=== PATIENT | male | born 1940 | race Caucasian/White ===

== ENCOUNTER 2017-01-22 13:33 | Emergency (ER) | payer MEDICARE ==
[2017-01-22 13:41] VITALS: RESP 18
[2017-01-22] MEDS ORDERED: SODIUM CHLORIDE 0.9% 500 ML IV STA (14:18)
[2017-01-22] MEDS ORDERED: SODIUM CHLORIDE 0.9% 1,000 ML IV STA (14:18)
[2017-01-22] MEDS ORDERED: ONDANSETRON 4 MG/2 ML VIAL IVP STA (14:18)
--- NOTE | 2017-01-22 14:27 | ED ---
General Adult HPI - General Chief complaint: Nausea/Vomiting/Diarrhea Stated complaint: Diarrhea Time Seen by Provider: 01/22/17 14:13 Source: patient, RN notes reviewed, old records reviewed Mode of arrival: wheelchair Limitations: no limitations - History of Present Illness Initial comments: This is a 76-year-old male here for evaluation nausea vomiting diarrhea. Patient has medical history of CVA, patient coming in for evaluation for from car monos day and a half nausea vomiting and diarrhea, weakness decreased appetite not feeling well. No fevers, no significant abdominal pain. No cough congestion or dysuria. No travel history no sick contacts - Related Data Home Medications Medication Instructions Recorded Confirmed Tamsulosin [Flomax] 0.4 mg PO DAILY 09/30/16 01/22/17 metFORMIN HCL [Glucophage] 850 mg PO BID 09/30/16 01/22/17 Multivitamin [Men's Multi-Vitamin] 1 tab PO DAILY 10/13/16 01/22/17 Aspirin EC [Ecotrin Low Dose] 81 mg PO DAILY 01/22/17 01/22/17 Finasteride [Proscar] 5 mg PO HS 01/22/17 01/22/17 Vitamin D(Unknown) 1 tab PO DAILY 01/22/17 01/22/17 Previous Rx's Medication Instructions Recorded Ondansetron [Zofran] 4 mg PO Q8HR PRN #30 tab 01/22/17 Allergies Allergy/AdvReac Type Severity Reaction Status Date / Time adhesive Allergy Unknown IRRITATED Verified 01/22/17 15:11 SKIN propoxyphene napsylate AdvReac Unknown DIZZY, Verified 01/22/17 15:11 [From Darvocet-N 100] FAINT Review of Systems ROS Statement: Those systems with pertinent positive or pertinent negative responses have been documented in the HPI. ROS Other: All systems not noted in ROS Statement are negative. Past Medical History Past Medical History: Diabetes Mellitus, GERD/Reflux, Hyperlipidemia, Hypertension, Prostate Disorder Additional Past Medical History / Comment(s): SEE DR MCQUEEN H&P, SINUS DRAINAGE. BACK PROBLEMS WITH NUMBNESS AND TINGLING IN LEGS. TOENAIL FUNGUS, HX OF SMALL POX INFANT. NEUROENDOCRINE CANCER STAGE 4 LIVER CANCER. TINNITUS History of Any Multi-Drug Resistant Organisms: None Reported Past Surgical History: Back Surgery, Cholecystectomy, Orthopedic Surgery, Tonsillectomy Additional Past Surgical History / Comment(s): BACK SURGERY WITH CAGE L-4 & L-5 , KIMBERLY GREAT TOES, PERFORATED ULCER WITH VAGOTOMY AT 28 YRS OLD WITH MICHAEL . SINUS SURGERY. PORTAL VEIN EMBOLIZATION. KIMBERLY CARPAL TUNNEL, KIMBERLY MIDDLE FINGER TRIGGER FINGER, KIMBERLY CATARACT Past Anesthesia/Blood Transfusion Reactions: No Reported Reaction Past Psychological History: No Psychological Hx Reported Smoking Status: Never smoker Past Alcohol Use History: None Reported Past Drug Use History: None Reported - Past Family History Father Family Medical History: Cancer Additional Family Medical History / Comment(s): PROSTATE Sister(s) Family Medical History: Cancer Additional Family Medical History / Comment(s): LUNG General Exam Limitations: no limitations General appearance: alert, in no apparent distress Head exam: Present: atraumatic, normocephalic, normal inspection Eye exam: Present: normal appearance, PERRL, EOMI. Absent: scleral icterus, conjunctival injection, periorbital swelling ENT exam: Present: normal exam, mucous membranes moist Neck exam: Present: normal inspection. Absent: tenderness, meningismus, lymphadenopathy Respiratory exam: Present: normal lung sounds bilaterally. Absent: respiratory distress, wheezes, rales, rhonchi, stridor Cardiovascular Exam: Present: regular rate, normal rhythm, normal heart sounds. Absent: systolic murmur, diastolic murmur, rubs, gallop, clicks GI/Abdominal exam: Present: soft, normal bowel sounds. Absent: distended, tenderness, guarding, rebound, rigid Extremities exam: Present: normal inspection, full ROM, normal capillary refill. Absent: tenderness, pedal edema, joint swelling, calf tenderness Back exam: Present: normal inspection Neurological exam: Present: alert, oriented X3, CN II-XII intact Psychiatric exam: Present: normal affect, normal mood Skin exam: Present: warm, dry, intact, normal color. Absent: rash Course Vital Signs 01/22/17 01/22/17 01/22/17 13:37 14:54 16:11 Temperature 97.0 F L 97.7 F 98.3 F Pulse Rate 101 H 90 81 Respiratory 18 18 18 Rate Blood Pressure 114/74 147/65 124/74 O2 Sat by Pulse 98 97 97 Oximetry - Reevaluation(s) Reevaluation #1: Patient is without nausea vomiting or episode of diarrhea here in the emergency room EKG Findings - EKG Comments: EKG Findings:: EKG shows normal sinus rhythm 91, OR 160, QRS 90, QTC 447 Medical Decision Making - Medical Decision Making 36 male the ER for evaluation of nausea vomiting diarrhea, possibly medication induced. Patient at this time has no complaints, he did have outpatient stool study flu test urine which is all negative, patient's labwork is no moist finger with IV fluid will be given antiemetic and discharged home - Lab Data Result diagrams: 01/22/17 14:29 01/22/17 14:29 Lab Results 01/22/17 01/22/17 01/22/17 Range/Units 14:29 14:29 14:29 WBC 15.4 H (3.8-10.6) k/uL RBC 4.21 L (4.30-5.90) m/uL Hgb 13.3 (13.0-17.5) gm/dL Hct 40.6 (39.0-53.0) % MCV 96.4 (80.0-100.0) fL MCH 31.5 (25.0-35.0) pg MCHC 32.7 (31.0-37.0) g/dL RDW 12.3 (11.5-15.5) % Plt Count 291 (150-450) k/uL Neutrophils % 94 % Lymphocytes % 2 % Monocytes % 2 % Eosinophils % 1 % Basophils % 0 % Neutrophils # 14.4 H (1.3-7.7) k/uL Lymphocytes # 0.3 L (1.0-4.8) k/uL Monocytes # 0.4 (0-1.0) k/uL Eosinophils # 0.1 (0-0.7) k/uL Basophils # 0.0 (0-0.2) k/uL Sodium 137 (137-145) mmol/L Potassium 4.5 (3.5-5.1) mmol/L Chloride 105 (98-107) mmol/L Carbon Dioxide 19 L (22-30) mmol/L Anion Gap 13 mmol/L BUN 38 H (9-20) mg/dL Creatinine 1.30 H (0.66-1.25) mg/dL Est GFR (MDRD) Af Amer >60 (>60 ml/min/1.73 sqM) Est GFR (MDRD) Non-Af 54 (>60 ml/min/1.73 sqM) Glucose 116 H (74-99) mg/dL Plasma Lactic Acid Sean (0.7-2.0) mmol/L Calcium 8.5 (8.4-10.2) mg/dL Phosphorus 3.3 (2.5-4.5) mg/dL Magnesium 1.7 (1.6-2.3) mg/dL Total Bilirubin 0.7 (0.2-1.3) mg/dL AST 31 (17-59) U/L ALT 33 (21-72) U/L Alkaline Phosphatase 67 (38-126) U/L Total Creatine Kinase 55 (55-170) U/L CK-MB (CK-2) 0.7 (0.0-2.4) ng/mL CK-MB (CK-2) Rel Index 1.3 Troponin I <0.012 (0.000-0.034) ng/mL Total Protein 6.4 (6.3-8.2) g/dL Albumin 3.5 (3.5-5.0) g/dL 01/22/17 Range/Units 14:29 WBC (3.8-10.6) k/uL RBC (4.30-5.90) m/uL Hgb (13.0-17.5) gm/dL Hct (39.0-53.0) % MCV (80.0-100.0) fL MCH (25.0-35.0) pg MCHC (31.0-37.0) g/dL RDW (11.5-15.5) % Plt Count (150-450) k/uL Neutrophils % % Lymphocytes % % Monocytes % % Eosinophils % % Basophils % % Neutrophils # (1.3-7.7) k/uL Lymphocytes # (1.0-4.8) k/uL Monocytes # (0-1.0) k/uL Eosinophils # (0-0.7) k/uL Basophils # (0-0.2) k/uL Sodium (137-145) mmol/L Potassium (3.5-5.1) mmol/L Chloride (98-107) mmol/L Carbon Dioxide (22-30) mmol/L Anion Gap mmol/L BUN (9-20) mg/dL Creatinine (0.66-1.25) mg/dL Est GFR (MDRD) Af Amer (>60 ml/min/1.73 sqM) Est GFR (MDRD) Non-Af (>60 ml/min/1.73 sqM) Glucose (74-99) mg/dL Plasma Lactic Acid Sean 1.6 (0.7-2.0) mmol/L Calcium (8.4-10.2) mg/dL Phosphorus (2.5-4.5) mg/dL Magnesium (1.6-2.3) mg/dL Total Bilirubin (0.2-1.3) mg/dL AST (17-59) U/L ALT (21-72) U/L Alkaline Phosphatase (38-126) U/L Total Creatine Kinase (55-170) U/L CK-MB (CK-2) (0.0-2.4) ng/mL CK-MB (CK-2) Rel Index Troponin I (0.000-0.034) ng/mL Total Protein (6.3-8.2) g/dL Albumin (3.5-5.0) g/dL - Radiology Data Radiology results: report reviewed (Chest x-ray is negative for acute disease), image reviewed Disposition Clinical Impression: Drug-induced nausea and vomiting, Nausea & vomiting Disposition: HOME SELF-CARE Condition: Good Instructions: Acute Diarrhea (ED), Acute Nausea and Vomiting (ED) Prescriptions: Ondansetron [Zofran] 4 mg PO Q8HR PRN #30 tab PRN Reason: Nausea Referrals: None,Stated [Primary Care Provider] - 1-2 days
[2017-01-22 14:54] LABS: Basophils % (A) 0 %; CH 31.9; CHCM 33.2; Eosinophils # (A) 0.1 k/uL (0-0.7); Eosinophils % (A) 1 %; HCT 40.6 % (39.0-53.0); HDW 2.18; HGB 13.3 gm/dL (13.0-17.5); Luc # (Auto) 0.15; Luc % (Auto) 1; Lymphocytes # (A) 0.3 k/uL (1.0-4.8); Lymphocytes % (A) 2 %; MCH 31.5 pg (25.0-35.0); MCHC 32.7 g/dL (31.0-37.0); MCV 96.4 fL (80.0-100.0); Mean Platelet Volume 7.1; Monocytes # (A) 0.4 k/uL (0-1.0); Monocytes % (A) 2 %; Neutrophils # (A) 14.4 k/uL (1.3-7.7); Neutrophils % (A) 94 %; RBC 4.21 m/uL (4.30-5.90); RDW 12.3 % (11.5-15.5); WBC 15.4 k/uL (3.8-10.6)
[2017-01-22 15:05] LABS: ALT 33 U/L (21-72); AST 31 U/L (17-59); Alkaline Phosphatase 67 U/L (38-126); Anion Gap 13 mmol/L; Blood Urea Nitrogen 38 mg/dL (9-20); Calcium 8.5 mg/dL (8.4-10.2); Carbon Dioxide 19 mmol/L (22-30); Chloride 105 mmol/L (98-107); Glucose 116 mg/dL (74-99); Magnesium 1.7 mg/dL (1.6-2.3); Non-African American GFR(MDRD) 54 (>60 ml/min/1.73 sqM); Phosphorous 3.3 mg/dL (2.5-4.5); Potassium 4.5 mmol/L (3.5-5.1); Sodium 137 mmol/L (137-145); Total Bilirubin 0.7 mg/dL (0.2-1.3); Total Protein 6.4 g/dL (6.3-8.2)
[2017-01-22 15:18] LABS: Creatine Kinase 55 U/L (55-170)
[2017-01-22 15:29] LABS: Creatine Kinase MB 0.7 ng/mL (0.0-2.4); Troponin I <0.012 ng/mL (0.000-0.034)
[2017-01-22 16:11] VITALS: BP 124/74; PULSE 81; TEMP 98.3
--- NOTE | 2017-01-22 16:27 | XR ---
EXAMINATION TYPE: XR chest 2V DATE OF EXAM: 01/22/2017 4:01 PM COMPARISON: 09/20/2013 HISTORY: 76-year-old male with pain, cough, fever, chills TECHNIQUE: Frontal and lateral views FINDINGS: Heart is normal size. Mild elongation of the thoracic aorta. Some strandy atelectasis in the lower rebekah ngs. No consolidation or pleural effusion. IMPRESSION: Chronic changes without acute cardiopulmonary process.
== END 2017-01-22 16:24 | disposition home or self-care (01) ==
LOC: EC 13:33
DX: R11.2 Nausea with vomiting, unspecified (principal); K21.9 Gastro-esophageal reflux disease without esophagitis; I10 Essential (primary) hypertension; E78.5 Hyperlipidemia, unspecified; E11.9 Type 2 diabetes mellitus without complications; Z86.73 Personal history of transient ischemic attack (TIA), and cerebral infarction without residual deficits; Z79.84 Long term (current) use of oral hypoglycemic drugs; Z79.82 Long term (current) use of aspirin; Z79.899 Other long term (current) drug therapy; Z88.5 Allergy status to narcotic agent; Z88.8 Allergy status to other drugs, medicaments and biological substances
CPT/HCPCS: 36415; 71020; 80053; 82550; 82553; 83605; 83735; 84100; 84484; 85025; 87040; 93005; 96360; 99284

== ENCOUNTER 2017-01-24 07:11 | Inpatient (IN) | payer MEDICARE ==
[2017-01-24] MEDS ORDERED: DICYCLOMINE 10 MG/ML 2 ML AMP IM STA (07:32)
[2017-01-24] MEDS ORDERED: ONDANSETRON 4 MG/2 ML VIAL IVP STA (07:32)
[2017-01-24] MEDS ORDERED: SODIUM CHLORIDE 0.9% 1,000 ML IV STA (07:32)
[2017-01-24] MEDS ORDERED: FAMOTIDINE 20 MG/2 ML VIAL IV STA (07:33)
--- NOTE | 2017-01-24 07:35 | ED ---
General Adult HPI - General Chief complaint: Abdominal Pain Stated complaint: DIARRHEA, VOMITING Time Seen by Provider: 01/24/17 07:28 Source: patient, family, RN notes reviewed Mode of arrival: wheelchair Limitations: no limitations - History of Present Illness Initial comments: Patient is a pleasant 76-year-old male presenting to the emergency department complaining of nausea vomiting diarrhea. Onset of symptoms was 3 or 4 days ago. Patient was here 2 days ago and received IV fluids. Patient has not ate or drank anything in the past 2 days. Patient does have occasional diarrhea. Patient has some abdominal discomfort that is mild. No fevers. Patient does have a history of liver cancer however is not currently on chemotherapy. - Related Data Home Medications Medication Instructions Recorded Confirmed Tamsulosin [Flomax] 0.4 mg PO DAILY 09/30/16 01/24/17 metFORMIN HCL [Glucophage] 850 mg PO BID 09/30/16 01/24/17 Multivitamin [Men's Multi-Vitamin] 1 tab PO DAILY 10/13/16 01/24/17 Aspirin EC [Ecotrin Low Dose] 81 mg PO DAILY 01/22/17 01/24/17 Finasteride [Proscar] 5 mg PO HS 01/22/17 01/24/17 Vitamin D(Unknown) 1 tab PO DAILY 01/22/17 01/24/17 Previous Rx's Medication Instructions Recorded Ondansetron [Zofran] 4 mg PO Q8HR PRN #30 tab 01/22/17 Allergies Allergy/AdvReac Type Severity Reaction Status Date / Time adhesive Allergy Unknown IRRITATED Verified 01/24/17 07:18 SKIN propoxyphene napsylate AdvReac Unknown DIZZY, Verified 01/24/17 07:18 [From Rupesht-N 100] FAINT Review of Systems ROS Statement: Those systems with pertinent positive or pertinent negative responses have been documented in the HPI. ROS Other: All systems not noted in ROS Statement are negative. Constitutional: Denies: fever Eyes: Denies: eye pain ENT: Denies: ear pain Respiratory: Denies: dyspnea Cardiovascular: Denies: chest pain Endocrine: Reports: fatigue Gastrointestinal: Reports: abdominal pain, nausea, vomiting, diarrhea Genitourinary: Denies: dysuria Musculoskeletal: Denies: back pain Skin: Denies: rash Neurological: Denies: headache Past Medical History Past Medical History: Cancer, Diabetes Mellitus, GERD/Reflux, Hyperlipidemia, Hypertension, Prostate Disorder Additional Past Medical History / Comment(s): SEE DR MCQUEEN H&P, SINUS DRAINAGE. BACK PROBLEMS WITH NUMBNESS AND TINGLING IN LEGS. TOENAIL FUNGUS, HX OF SMALL POX . NEUROENDOCRINE CANCER STAGE 4 LIVER CANCER. TINNITUS History of Any Multi-Drug Resistant Organisms: None Reported Past Surgical History: Back Surgery, Cholecystectomy, Orthopedic Surgery, Tonsillectomy Additional Past Surgical History / Comment(s): BACK SURGERY WITH CAGE L-4 & L-5 , KIMBERLY GREAT TOES, PERFORATED ULCER WITH VAGOTOMY AT 28 YRS OLD WITH MICHAEL . SINUS SURGERY. PORTAL VEIN EMBOLIZATION. KIMBERLY CARPAL TUNNEL, KIMBERLY MIDDLE FINGER TRIGGER FINGER, KIMBERLY CATARACT Past Anesthesia/Blood Transfusion Reactions: No Reported Reaction Past Psychological History: No Psychological Hx Reported Smoking Status: Never smoker Past Alcohol Use History: None Reported Past Drug Use History: None Reported - Past Family History Father Family Medical History: Cancer Additional Family Medical History / Comment(s): PROSTATE Sister(s) Family Medical History: Cancer Additional Family Medical History / Comment(s): LUNG General Exam Limitations: no limitations General appearance: alert, in no apparent distress Head exam: Present: atraumatic Eye exam: Present: normal appearance, PERRL ENT exam: Present: normal oropharynx Neck exam: Present: normal inspection Respiratory exam: Present: normal lung sounds bilaterally Cardiovascular Exam: Present: regular rate, normal rhythm GI/Abdominal exam: Present: soft, tenderness (Mild diffuse tenderness), normal bowel sounds. Absent: distended, guarding, rebound, rigid, pulsatile mass Extremities exam: Present: normal inspection. Absent: pedal edema, calf tenderness Neurological exam: Present: alert Psychiatric exam: Present: normal affect, normal mood Skin exam: Absent: rash Course Vital Signs 01/24/17 01/24/17 01/24/17 07:12 09:09 11:00 Temperature 97.7 F Pulse Rate 87 84 81 Respiratory 22 20 16 Rate Blood Pressure 185/92 170/92 169/81 O2 Sat by Pulse 99 100 98 Oximetry Medical Decision Making - Medical Decision Making Patient reexamined and somewhat improved. Patient and family updated on results and plan. Case was discussed in detail with Dr. Dorado who does agree with admission. Case also discussed in detail with Dr. wilson, who will admit for medical call. - Lab Data Result diagrams: 01/24/17 07:29 01/24/17 07:29 Lab Results 01/24/17 01/24/17 01/24/17 Range/Units 07:29 07:29 07:29 WBC 14.1 H (3.8-10.6) k/uL RBC 4.69 (4.30-5.90) m/uL Hgb 14.7 (13.0-17.5) gm/dL Hct 44.7 (39.0-53.0) % MCV 95.3 (80.0-100.0) fL MCH 31.3 (25.0-35.0) pg MCHC 32.9 (31.0-37.0) g/dL RDW 12.1 (11.5-15.5) % Plt Count 355 (150-450) k/uL Neutrophils % 84 % Lymphocytes % 8 % Monocytes % 5 % Eosinophils % 0 % Basophils % 0 % Neutrophils # 11.9 H (1.3-7.7) k/uL Lymphocytes # 1.1 (1.0-4.8) k/uL Monocytes # 0.7 (0-1.0) k/uL Eosinophils # 0.0 (0-0.7) k/uL Basophils # 0.0 (0-0.2) k/uL PT 11.3 (9.0-12.0) sec INR 1.1 (<1.1) APTT 25.4 (22.0-30.0) sec Sodium 141 (137-145) mmol/L Potassium 3.8 (3.5-5.1) mmol/L Chloride 106 (98-107) mmol/L Carbon Dioxide 18 L (22-30) mmol/L Anion Gap 17 mmol/L BUN 27 H (9-20) mg/dL Creatinine 1.24 (0.66-1.25) mg/dL Est GFR (MDRD) Af Amer >60 (>60 ml/min/1.73 sqM) Est GFR (MDRD) Non-Af 57 (>60 ml/min/1.73 sqM) Glucose 158 H (74-99) mg/dL Calcium 10.1 (8.4-10.2) mg/dL Total Bilirubin 0.5 (0.2-1.3) mg/dL AST 29 (17-59) U/L ALT 33 (21-72) U/L Alkaline Phosphatase 77 (38-126) U/L Total Protein 6.7 (6.3-8.2) g/dL Albumin 3.8 (3.5-5.0) g/dL Amylase 64 (30-110) U/L Lipase 154 (23-300) U/L Urine Color Urine Appearance (Clear) Urine pH (5.0-8.0) Ur Specific Haworth (1.001-1.035) Urine Protein (Negative) Urine Glucose (UA) (Negative) Urine Ketones (Negative) Urine Blood (Negative) Urine Nitrite (Negative) Urine Bilirubin (Negative) Urine Urobilinogen (<2.0) mg/dL Ur Leukocyte Esterase (Negative) 01/24/17 Range/Units 11:25 WBC (3.8-10.6) k/uL RBC (4.30-5.90) m/uL Hgb (13.0-17.5) gm/dL Hct (39.0-53.0) % MCV (80.0-100.0) fL MCH (25.0-35.0) pg MCHC (31.0-37.0) g/dL RDW (11.5-15.5) % Plt Count (150-450) k/uL Neutrophils % % Lymphocytes % % Monocytes % % Eosinophils % % Basophils % % Neutrophils # (1.3-7.7) k/uL Lymphocytes # (1.0-4.8) k/uL Monocytes # (0-1.0) k/uL Eosinophils # (0-0.7) k/uL Basophils # (0-0.2) k/uL PT (9.0-12.0) sec INR (<1.1) APTT (22.0-30.0) sec Sodium (137-145) mmol/L Potassium (3.5-5.1) mmol/L Chloride (98-107) mmol/L Carbon Dioxide (22-30) mmol/L Anion Gap mmol/L BUN (9-20) mg/dL Creatinine (0.66-1.25) mg/dL Est GFR (MDRD) Af Amer (>60 ml/min/1.73 sqM) Est GFR (MDRD) Non-Af (>60 ml/min/1.73 sqM) Glucose (74-99) mg/dL Calcium (8.4-10.2) mg/dL Total Bilirubin (0.2-1.3) mg/dL AST (17-59) U/L ALT (21-72) U/L Alkaline Phosphatase (38-126) U/L Total Protein (6.3-8.2) g/dL Albumin (3.5-5.0) g/dL Amylase (30-110) U/L Lipase (23-300) U/L Urine Color Yellow Urine Appearance Clear (Clear) Urine pH 5.5 (5.0-8.0) Ur Specific Haworth 1.045 H (1.001-1.035) Urine Protein Trace H (Negative) Urine Glucose (UA) Negative (Negative) Urine Ketones 1+ H (Negative) Urine Blood Negative (Negative) Urine Nitrite Negative (Negative) Urine Bilirubin Negative (Negative) Urine Urobilinogen <2.0 (<2.0) mg/dL Ur Leukocyte Esterase Negative (Negative) - Radiology Data Radiology results: report reviewed (Computed tomography scan of the abdomen pelvis shows enteritis. Possible mild diverticulitis. Pneumobilia and liver lesion.) Disposition Clinical Impression: Diverticulitis Disposition: ADMITTED IP TO THIS HOSP
[2017-01-24 07:50] LABS: Basophils % (A) 0 %; CH 31.9; CHCM 33.7; Eosinophils % (A) 0 %; HCT 44.7 % (39.0-53.0); HDW 2.41; HGB 14.7 gm/dL (13.0-17.5); Luc # (Auto) 0.26; Luc % (Auto) 2; Lymphocytes # (A) 1.1 k/uL (1.0-4.8); Lymphocytes % (A) 8 %; MCH 31.3 pg (25.0-35.0); MCHC 32.9 g/dL (31.0-37.0); MCV 95.3 fL (80.0-100.0); Mean Platelet Volume 7.4; Monocytes # (A) 0.7 k/uL (0-1.0); Monocytes % (A) 5 %; Neutrophils # (A) 11.9 k/uL (1.3-7.7); Neutrophils % (A) 84 %; RBC 4.69 m/uL (4.30-5.90); RDW 12.1 % (11.5-15.5); WBC 14.1 k/uL (3.8-10.6); WBC (Perox) 14.43
[2017-01-24 07:59] LABS: INR 1.1 (<1.1); Partial Thromboplastin Time 25.4 sec (22.0-30.0); Prothrombin Time 11.3 sec (9.0-12.0)
[2017-01-24 08:00] LABS: ALT 33 U/L (21-72); AST 29 U/L (17-59); Alkaline Phosphatase 77 U/L (38-126); Amylase 64 U/L (30-110); Anion Gap 17 mmol/L; Blood Urea Nitrogen 27 mg/dL (9-20); Calcium 10.1 mg/dL (8.4-10.2); Carbon Dioxide 18 mmol/L (22-30); Chloride 106 mmol/L (98-107); Glucose 158 mg/dL (74-99); Non-African American GFR(MDRD) 57 (>60 ml/min/1.73 sqM); Sodium 141 mmol/L (137-145); Total Bilirubin 0.5 mg/dL (0.2-1.3); Total Protein 6.7 g/dL (6.3-8.2)
[2017-01-24 08:01] LABS: Potassium 3.8 mmol/L (3.5-5.1)
[2017-01-24] MEDS ORDERED: MORPHINE SULFATE 4 MG/ML SYRINGE IVP STA (08:22)
--- NOTE | 2017-01-24 08:27 | XR ---
EXAMINATION TYPE: XR KUB DATE OF EXAM: 01/24/2017 8:06 AM CLINICAL HISTORY: Known history of liver cancer presents with abdominal pain since TECHNIQUE: 2 upright KUB images of the abdomen are obtained. COMPARISON: Abdominal x-ray and CT abdomen and pelvis October 13, 2016 FINDINGS: Scattered gas is seen in non-distended small and large bowel loops. Surgical clips epigas tric region are redemonstrated. Cholecystectomy clips are again seen. Some pelvic phleboliths are red emonstrated. Surgical change at lumbosacral junction disc space is redemonstrated. No pneumoperitoneu m is identified. Lung bases are clear. There is disc space narrowing with sclerosis at L2-L3 and L3-L 4 levels redemonstrated. IMPRESSION: Overall nonobstructive bowel gas pattern.
[2017-01-24] MEDS ORDERED: RX INFO: IV CONTRAST WAS GIVEN 1 EACH MISC MISCELLANE PRN (08:47)
[2017-01-24] MEDS: MORPHINE SULFATE 4 MG/ML SYRINGE IVP STA ×2 (09:06→10:59)
--- NOTE | 2017-01-24 11:09 | CT ---
EXAMINATION TYPE: CT abdomen pelvis w con DATE OF EXAM: 01/24/2017 10:42 AM COMPARISON: CT abdomen and pelvis October 13, 2016 HISTORY: History of liver and prostate cancer presents with pain not further specified. Additional sy mptoms of diarrhea and vomiting. CT DLP: 824.7 mGycm, Automated Exposure Control for Dose Reduction was Utilized. CONTRAST: CT scan of the abdomen and pelvis is performed without oral and with IV Contrast, patient injected wi th 100 mL of Omnipaque 300. FINDINGS: LUNG BASES: No significant abnormality is appreciated. LIVER/GB: Cholecystectomy clips are redemonstrated. There is new pneumobilia noted. A Central hypoden se lesion with calcification measuring 2.7 x 1.9 cm on axial image 20 is felt stable from prior. PANCREAS: No significant abnormality is seen. SPLEEN: No significant abnormality is seen. ADRENALS: No significant abnormality is seen. KIDNEYS: No significant abnormality is seen. BOWEL: Evaluation bowel is suboptimal due to lack of enteric contrast. There are surgical changes at diaphragmatic hiatus presumed from Lobo fundoplication surgery. There is dilated duodenal sweep wit h moderate to severe wall thickening beginning in the third portion extending through ligament of Venu jarret into the proximal jejunum. Long segment enteritis is suspected. Remainder of small bowel shows no suspicious dilatation. No suspicious colonic dilatation is seen. There is prominent sigmoid colonic diverticulosis. There are additional diverticula in the left colon. Mild inflammatory change or acute diverticulitis at level of sigmoid colon is difficult to exclude as there is moderate wall thickenin g with mild vasa recta prominency and adjacent ill-defined fluid. PROSTATE/SEMINAL VESICLES: Prostate gland is heterogeneous appearance and enlarged in size consistent with BPH, clinical correlation advised. LYMPH NODES: No greater than 1cm abdominal or pelvic lymph nodes are appreciated. OSSEOUS STRUCTURES: There is prominent endplate sclerosis with disc space narrowing as well as subcho ndral cystic change and spurring at L2-L3 and L3-L4 levels. Metallic disc material L5-S1 level is red emonstrated. There is facet arthropathy lower lumbar levels. There is multilevel spurring in the visu alized thoracic spine. OTHER: No significant additional abnormality is seen. IMPRESSION: 1. Prominent sigmoid colonic diverticulosis with suspicion for a mild acute diverticulitis. 2. Acute enteritis suspected in the mid abdomen involving duodenum and proximal jejunum, consider inf ectious or inflammatory etiologies. 3. New pneumobilia with stable suspicious partially calcified solid central liver mass may warrant fu rther clinical workup.
[2017-01-24 11:41] LABS: Appearance,Urine Clear (Clear); Bilirubin,Urine Negative (Negative); Glucose,Urine (UA) Negative (Negative); Ketones,Urine 1+ (Negative); Leukocyte Esterase,Urine Negative (Negative); Nitrite,Urine Negative (Negative); PH, Urine 5.5 (5.0-8.0); Protein,Urine Trace (Negative); Specific Gravity,Urine 1.045 (1.001-1.035); UA Billing (MACRO vs. MICRO) CHEM; Urobilinogen,Urine <2.0 mg/dL (<2.0)
[2017-01-24] MEDS ORDERED: NALOXONE 0.4 MG/ML 1 ML VIAL IV PRN (11:59)
[2017-01-24] MEDS: SODIUM CHLORIDE 0.9% 1,000 ML IV SCH (12:19)
[2017-01-24 13:44] VITALS: BMI 24.0
[2017-01-24] MEDS: LEVOFLOXACIN 500MG-D5W PMX 500 MG in DEXTROSE/WATER 1 100ML.BAG IVPB SCH (15:48)
[2017-01-24] MEDS: metroNIDAZOLE-NS PMX 500 MG in SALINE 1 100ML.BAG IVPB SCH (17:32)
[2017-01-24 17:34] LABS: Glucose,Whole Blood 109 mg/dL (75-99)
[2017-01-24] MEDS: HYDROmorphone 1 MG/ML 1 ML SYRINGE IV PRN ×2 (17:35→22:08)
--- NOTE | 2017-01-24 19:22 | P.GSCN ---
History of Present Illness Consult date: 01/24/17 Reason for Consult: Abdominal pain History of present illness: 76 years old male presents with diffuse abdominal pain, diarrhea and vomiting that started 3 days ago. Patient was treated with IV hydration as outpatient. However his symptoms did not improve and hence he came to the ER. 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 He has Type 2 DM. He was receiving Sandostatin injection utill October 2016. He currently follows up with Dr. Villarreal and has 6 monthly follow up visits at [facility] At the time of my examination, patient reports pain is well controlled. He has loose bowel movement within half an hour of food intake. He also has postprandial abdominal pain. Diarrhea discussed described as watery without any clots or anderson bleeding. His nausea and vomiting have resolved. Review of Systems Constitutional: Denies fever, weight loss or loss of appetite HEENT: Has difficulty in hearing. Denies dysphagia. Cardiovascular:Denies chest pain, palpitations, dizziness, shortness of breath. Respiratory: No cough or SOB Gastrointestinal: stated in [facility] Integumentary: No ulcers or breakdown Genitourinary: Has BPH Neurologic: No seizures, denies weakness in upper or lower extremities Past Medical History Past Medical History: Cancer, Diabetes Mellitus, GERD/Reflux, Hyperlipidemia, Hypertension, Prostate Disorder Additional Past Medical History / Comment(s): SEE DR MCQUEEN H&P, SINUS DRAINAGE. BACK PROBLEMS WITH NUMBNESS AND TINGLING IN LEGS. TOENAIL FUNGUS, HX OF SMALL POX INFANT. NEUROENDOCRINE CANCER STAGE 4 LIVER CANCER. TINNITUS History of Any Multi-Drug Resistant Organisms: None Reported Past Surgical History: Back Surgery, Cholecystectomy, Orthopedic Surgery, Tonsillectomy Additional Past Surgical History / Comment(s): BACK SURGERY WITH CAGE L-4 & L-5 , KIMBERLY GREAT TOES, PERFORATED ULCER WITH VAGOTOMY AT 28 YRS OLD WITH MICHAEL . SINUS SURGERY. PORTAL VEIN EMBOLIZATION. KIMBERLY CARPAL TUNNEL, KIMBERLY MIDDLE FINGER TRIGGER FINGER, KIMBERLY CATARACT Past Anesthesia/Blood Transfusion Reactions: No Reported Reaction Past Psychological History: No Psychological Hx Reported Smoking Status: Never smoker Past Alcohol Use History: None Reported Past Drug Use History: None Reported - Past Family History Father Family Medical History: Cancer Additional Family Medical History / Comment(s): PROSTATE Sister(s) Family Medical History: Cancer Additional Family Medical History / Comment(s): LUNG Medications and Allergies Home Medications Medication Instructions Recorded Confirmed Type Tamsulosin [Flomax] 0.4 mg PO DAILY 09/30/16 01/24/17 History metFORMIN HCL [Glucophage] 850 mg PO BID 09/30/16 01/24/17 History Multivitamin [Men's Multi-Vitamin] 1 tab PO DAILY 10/13/16 01/24/17 History Aspirin EC [Ecotrin Low Dose] 81 mg PO DAILY 01/22/17 01/24/17 History Finasteride [Proscar] 5 mg PO HS 01/22/17 01/24/17 History Cholestyramine (with Sugar) 4 gm PO BID 01/24/17 01/24/17 History [Questran] Allergies Allergy/AdvReac Type Severity Reaction Status Date / Time adhesive Allergy Unknown Rash/Hives Verified 01/24/17 12:29 propoxyphene napsylate AdvReac Unknown Vertigo Verified 01/24/17 12:29 [From [facility]-N 100] Surgical - Exam Vital Signs Temp Pulse Resp BP Pulse Ox 97.7 F 87 22 185/92 99 01/24/17 07:12 01/24/17 07:12 01/24/17 07:12 01/24/17 07:12 01/24/17 07:12 General: Patient is alert and oriented to time, place and person and cooperative with exam. He is not in acute distress. HEENT: No pallor, no icterus Chest: Bilateral equal breath sounds present. No wheezes, no crackles. Cardiovascular: Regular rate and rhythm. Abdomen: Soft, nontender, nondistended. Bowel sounds present. No peritonitis. Well-healed surgical scars Integumentary: No active ulcers or discharge. Neurologic: Cranial nerves II-XII intact. Strength upper and lower extremities 5/5. No focal neurologic deficits. Psychiatric: No anxiety or psychosis. Results - Labs 01/24/17 07:29 01/24/17 07:29 Abnormal Lab Results - Last 24 Hours (Table) 01/24/17 Range/Units 17:30 POC Glucose (mg/dL) 109 H (75-99) mg/dL - Imaging CT scan - abdomen: other (CT scan of the abdomen and pelvis reviewed. Extensive sigmoid diverticulosis with possible mild diverticulitis. No evidence of free air. Postsurgical changes in stomach and gallbladder fossa. Known liver lesion with calcifications. Pneumobilia present) Assessment and Plan (1) Abdominal pain Status: Acute (2) Nausea & vomiting Status: Acute (3) Pneumobilia Status: Acute (4) Type 2 diabetes mellitus Status: Acute (5) Neuroendocrine cancer Status: Acute Plan: 1. Patient examined and history reviewed. 2. Abdomen is soft. No evidence of acute peritonitis. No indication for immediate surgical intervention at this time 3. CT findings noted . Extensive diverticulosis. No evidence of perforation. Pneumobilia noted. Continue IV antibiotics Levaquin and Flagyl. Recheck CBC and CMP in a.m. 4. Type 2 diabetes mellitus, check hemoglobin A1c 5. DVT and GI prophylaxis 6. Reevaluate in a.m. 7. Abdominal x-ray series in a.m. 8. IV hydration 9. Start clear liquid diet
[2017-01-24 20:54] LABS: Glucose,Whole Blood 114 mg/dL (75-99)
--- NOTE | 2017-01-24 21:26 | HP ---
DATE OF ADMISSION: 01/24/2017 The patient is a very pleasant 76-year-old gentleman with history of liver cancer in remission, came in with complaints of ( ). ( ) decreased, sharp in nature. Nausea, vomiting and diarrhea has been going on for since Thursday. The patient had 3 episodes of vomiting today, along with multiple episodes of diarrhea today. Not sure if the patient has been on antibiotics or not. The patient is ( ) with renal failure. The patient had a CT of the abdomen which showed some minimal diverticulitis along with changes consistent with enteritis. Patient is admitted for IV fluids. The patient is ( ) levofloxacin. ( ) testing. The patient is not receiving chemotherapy currently. REVIEW OF SYSTEMS: CONSTITUTIONAL: No fever, no malaise, no fatigue. HEENT: No recent visual problems or hearing problems. Denied any sore throat. CARDIOVASCULAR: No chest pain, orthopnea, PND, no palpitations, no syncope. PULMONARY: No shortness of breath, no cough, no hemoptysis. GASTROINTESTINAL: Denies hematemesis, hematochezia, or blood in stool except for when he wipes he complains of some skin breakdown and blood secondary to that. Beyond that the patient does not have any history of GI bleed. NEUROLOGICAL: No headaches, no weakness, no numbness. HEMATOLOGICAL: Denies any bleeding or petechiae. GENITOURINARY: Denies any burning micturition, frequency, or urgency. MUSCULOSKELETAL/RHEUMATOLOGICAL: Denies any joint pain, swelling, or any muscle pain. ENDOCRINE: Denies any polyuria or polydipsia. The rest of the 14 point review of systems is negative. MEDICATIONS: 1. Tamsulosin. 2. Multivitamin. 3. ( ) Vitamin D. PAST MEDICAL HISTORY: Significant for liver transplant, the patient had an embolization in the past. ( ), hypertension although the patient does not take any medications for the hypertension. ( ). POST SURGICAL HISTORY: Back surgery, cholecystectomy in the past, orthopedic surgeries, ( ). The patient had a vagotomy in the past. SOCIAL HISTORY: Denies smoking or alcohol abuse. No drug abuse. FAMILY HISTORY: Father had prostate cancer. Sister had ( ). PHYSICAL EXAMINATION: VITAL SIGNS: Temp 97.7, pulse 81, blood pressure 116/81, saturation 98% on room air. GENERAL: The patient is alert and oriented x3, not in any acute distress. Well developed, well nourished. HEENT: Pupils are round and equally reacting to light. EOMI. No scleral icterus. No conjunctival pallor. Normocephalic, atraumatic. No pharyngeal erythema. No thyromegaly. CARDIOVASCULAR: S1 and S2 present. No murmurs, rubs, or gallops. PULMONARY: Chest is clear to auscultation, no wheezing or crackles. ABDOMEN: Scars consistent with laparotomy in the past. Abdomen is nontender, nondistended. No rebound or rigidity. MUSCULOSKELETAL: No joint swelling or deformity. EXTREMITIES: No cyanosis, clubbing, or pedal edema. NEUROLOGICAL: Gross neurological examination did not reveal any focal deficits. SKIN: No rashes. LABORATORY DATA: CBC and CMP are abnormal for elevated WBC count of 14,100. I do not have his baseline creatinine, ( ) elevated to around 1.2 for BUN of 27. ASSESSMENT AND PLAN: 1. Abdominal pain, nausea, vomiting, diarrhea, probably related to mild diverticulitis along with ( ). IV fluids have been started ( ). 2. Nausea, vomiting, diarrhea. The patient will be started on IV fluids. 3. Gastroesophageal reflux disease. 4. Diabetes mellitus. Hold off on bicarb. The patient will be started on sliding scale insulin. Continue to monitor clinically. Monitor kidney function. 5. Benign prostatic hypertrophy. Continue to ( ).
[2017-01-25] MEDS: metroNIDAZOLE-NS PMX 500 MG in SALINE 1 100ML.BAG IVPB SCH ×3 (02:30→15:26)
[2017-01-25] MEDS: SODIUM CHLORIDE 0.9% 1,000 ML IV SCH ×3 (02:41→13:46)
[2017-01-25] MEDS: HYDROmorphone 1 MG/ML 1 ML SYRINGE IV PRN ×2 (04:09→09:27)
[2017-01-25] MEDS: ONDANSETRON 4 MG/2 ML VIAL IVP PRN ×3 (05:52→22:16)
[2017-01-25 08:07] LABS: Glucose,Whole Blood 108 mg/dL (75-99)
[2017-01-25 08:14] LABS: Basophils # (A) 0.1 k/uL (0-0.2); Basophils % (A) 0 %; CH 31.7; CHCM 33.2; Eosinophils % (A) 0 %; HGB 12.6 gm/dL (13.0-17.5); Luc # (Auto) 0.29; Luc % (Auto) 2; Lymphocytes # (A) 1.3 k/uL (1.0-4.8); Lymphocytes % (A) 9 %; MCH 30.3 pg (25.0-35.0); MCHC 31.6 g/dL (31.0-37.0); MCV 95.9 fL (80.0-100.0); Mean Platelet Volume 7.2; Monocytes # (A) 0.9 k/uL (0-1.0); Monocytes % (A) 6 %; Neutrophils # (A) 11.6 k/uL (1.3-7.7); Neutrophils % (A) 82 %; RBC 4.17 m/uL (4.30-5.90); RDW 12.3 % (11.5-15.5); WBC 14.1 k/uL (3.8-10.6); WBC (Perox) 14.24
[2017-01-25 08:26] LABS: ALT 27 U/L (21-72); AST 22 U/L (17-59); Alkaline Phosphatase 54 U/L (38-126); Anion Gap 9 mmol/L; Blood Urea Nitrogen 20 mg/dL (9-20); Calcium 8.4 mg/dL (8.4-10.2); Carbon Dioxide 23 mmol/L (22-30); Chloride 108 mmol/L (98-107); Glucose 102 mg/dL (74-99); Non-African American GFR(MDRD) >60 (>60 ml/min/1.73 sqM); Potassium 3.7 mmol/L (3.5-5.1); Sodium 140 mmol/L (137-145); Total Bilirubin 0.3 mg/dL (0.2-1.3); Total Protein 5.2 g/dL (6.3-8.2)
[2017-01-25] MEDS: PANTOPRAZOLE 40 MG/10 ML VIAL IV SCH (09:36)
[2017-01-25 11:54] LABS: Glucose,Whole Blood 113 mg/dL (75-99)
--- NOTE | 2017-01-25 12:24 | P.PN ---
Subjective 76 years old male presents with diffuse abdominal pain, diarrhea and vomiting that started 3 days ago. Patient was treated with IV hydration as outpatient. However his symptoms did not improve and hence he came to the ER. 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 He has Type 2 DM. He was receiving Sandostatin injection utill October 2016. He currently follows up with Dr. Villarreal and has 6 monthly follow up visits at [facility] He has loose bowel movement within half an hour of food intake. He also has postprandial abdominal pain. No further BM. He has some nausea , no vomiting. No flatus. Abdominal pain - . Review of Systems Constitutional: Denies fever, weight loss or loss of appetite HEENT: Has difficulty in hearing. Denies dysphagia. Cardiovascular:Denies chest pain, palpitations, dizziness, shortness of breath. Respiratory: No cough or SOB Gastrointestinal: stated in [place] Integumentary: No ulcers or breakdown Genitourinary: Has BPH Neurologic: No seizures, denies weakness in upper or lower extremities Past Medical History Past Medical History: Cancer, Diabetes Mellitus, GERD/Reflux, Hyperlipidemia, Hypertension, Prostate Disorder Additional Past Medical History / Comment(s): SEE DR MCQUEEN H&P, SINUS DRAINAGE. BACK PROBLEMS WITH NUMBNESS AND TINGLING IN LEGS. TOENAIL FUNGUS, HX OF SMALL POX INFANT. NEUROENDOCRINE CANCER STAGE 4 LIVER CANCER. TINNITUS History of Any Multi-Drug Resistant Organisms: None Reported Past Surgical History: Back Surgery, Cholecystectomy, Orthopedic Surgery, Tonsillectomy Additional Past Surgical History / Comment(s): BACK SURGERY WITH CAGE L-4 & L-5 , KIMBERLY GREAT TOES, PERFORATED ULCER WITH VAGOTOMY AT 28 YRS OLD WITH MICHAEL . SINUS SURGERY. PORTAL VEIN EMBOLIZATION. KIMBERLY CARPAL TUNNEL, KIMBERLY MIDDLE FINGER TRIGGER FINGER, KIMBERLY CATARACT Past Anesthesia/Blood Transfusion Reactions: No Reported Reaction Past Psychological History: No Psychological Hx Reported Smoking Status: Never smoker Past Alcohol Use History: None Reported Past Drug Use History: None Reported - Past Family History Father Family Medical History: Cancer Additional Family Medical History / Comment(s): PROSTATE Sister(s) Family Medical History: Cancer Additional Family Medical History / Comment(s): LUNG Medications and Allergies Home Medications Medication Instructions Recorded Confirmed Type Tamsulosin [Flomax] 0.4 mg PO DAILY 09/30/16 01/24/17 History metFORMIN HCL [Glucophage] 850 mg PO BID 09/30/16 01/24/17 History Multivitamin [Men's Multi-Vitamin] 1 tab PO DAILY 10/13/16 01/24/17 History Aspirin EC [Ecotrin Low Dose] 81 mg PO DAILY 01/22/17 01/24/17 History Finasteride [Proscar] 5 mg PO HS 01/22/17 01/24/17 History Cholestyramine (with Sugar) 4 gm PO BID 01/24/17 01/24/17 History [Questran] Allergies Allergy/AdvReac Type Severity Reaction Status Date / Time adhesive Allergy Unknown Rash/Hives Verified 01/24/17 12:29 propoxyphene napsylate AdvReac Unknown Vertigo Verified 01/24/17 12:29 [From [facility]-N 100] Objective - Vital Signs Vital signs: Vital Signs Temp 97 F L 01/25/17 07:00 Pulse 79 01/25/17 08:00 Resp 18 01/25/17 08:00 BP 142/81 01/25/17 07:00 Pulse Ox 96 01/25/17 07:00 Intake & Output 01/24/17 01/25/17 01/25/17 18:59 06:59 18:59 Intake Total 569 1540 Output Total 0 Balance 569 1540 0 Weight 80.286 kg 80.286 kg Intake: Intake, IV Titration 569 1540 Amount Levofloxacin 500Mg-D5w 100 Pmx 500 mg In Dextrose/ Water 1 100ml.bag @ 100 mls/hr IVPB Q24H MARIUSZ Rx#: [id number] Sodium Chloride 0.9% 1, 369 1440 000 ml @ 120 mls/hr IV . Q8H20M MARIUSZ Rx#:[id number] metroNIDAZOLE-NS PMX 500 100 100 mg In Saline 1 100ml.bag @ 100 mls/hr IVPB Q8HR MARIUSZ Rx#:[id number] Output: Stool 0 Other: Voiding Method Toilet Urinal # Voids 0 1 # Bowel Movements 0 0 - Exam General: Patient is alert and oriented to time, place and person and cooperative with exam. He is not in acute distress. HEENT: No pallor, no icterus Chest: Bilateral equal breath sounds present. No wheezes, no crackles. Cardiovascular: Regular rate and rhythm. Abdomen: Soft, nontender, nondistended. Bowel sounds present. No peritonitis. Well-healed surgical scars Integumentary: No active ulcers or discharge. Neurologic: Cranial nerves II-XII intact. Strength upper and lower extremities 5/5. No focal neurologic deficits. Psychiatric: No anxiety or psychosis. - Labs CBC & Chem 7: 01/25/17 07:07 01/25/17 07:07 Labs: Abnormal Lab Results - Last 24 Hours (Table) 01/24/17 01/24/17 01/25/17 Range/Units 17:30 20:21 07:07 WBC 14.1 H (3.8-10.6) k/uL RBC 4.17 L (4.30-5.90) m/uL Hgb 12.6 L (13.0-17.5) gm/dL Neutrophils # 11.6 H (1.3-7.7) k/uL Chloride (98-107) mmol/L Glucose (74-99) mg/dL POC Glucose (mg/dL) 109 H 114 H (75-99) mg/dL Total Protein (6.3-8.2) g/dL Albumin (3.5-5.0) g/dL 01/25/17 01/25/17 01/25/17 Range/Units 07:07 07:56 11:48 WBC (3.8-10.6) k/uL RBC (4.30-5.90) m/uL Hgb (13.0-17.5) gm/dL Neutrophils # (1.3-7.7) k/uL Chloride 108 H (98-107) mmol/L Glucose 102 H (74-99) mg/dL POC Glucose (mg/dL) 108 H 113 H (75-99) mg/dL Total Protein 5.2 L (6.3-8.2) g/dL Albumin 2.7 L (3.5-5.0) g/dL Assessment and Plan (1) Abdominal pain Status: Acute (2) Nausea & vomiting Status: Acute (3) Pneumobilia Status: Acute (4) Type 2 diabetes mellitus Status: Acute (5) Neuroendocrine cancer Status: Acute Plan: 1. Patient examined 2. Abdomen is soft. No evidence of acute peritonitis. No indication for immediate surgical intervention at this time 3. CT findings noted . Extensive diverticulosis. No evidence of perforation. Pneumobilia noted. Continue IV antibiotics Levaquin and Flagyl. 4. Type 2 diabetes mellitus 5. DVT and GI prophylaxis 6. Recheck CBC in am 7. Abdominal x-ray series - non obstructive bowel gas pattern 8. IV hydration 9. Clear liquid diet
--- NOTE | 2017-01-25 13:24 | XR ---
EXAMINATION TYPE: XR abdomen acute w cxr DATE OF EXAM: 01/25/2017 12:12 PM COMPARISON: CT abdomen pelvis 24 January 2017 HISTORY: Pneumobilia TECHNIQUE: Frontal view of the chest and 3 views of the abdomen on a total of 4 images FINDINGS: The pneumobilia seen on CT is not seen on plain film, there is superimposed bowel gas. Po stop changes are noted. There is no evidence for pneumoperitoneum. The bowel gas pattern is unremarkable as there is air throughout nondilated small and large bowel. There is a mildly distended loop of small bowel. No mass effects are seen. No unusual calcifications. Calcifications within the pelvis are likely vascular IMPRESSION: There may be an underlying enteritis. Proximal small bowel loop seen on CT scan from day prior shows abnormal wall thickening. Pneumobilia is not evident due to superimposed bowel gas. Postop changes.
[2017-01-25] MEDS: LEVOFLOXACIN 500MG-D5W PMX 500 MG in DEXTROSE/WATER 1 100ML.BAG IVPB SCH (14:01)
[2017-01-25] MEDS ORDERED: ACETAMINOPHEN TAB 500 MG TAB PO PRN (14:42)
[2017-01-25 17:30] LABS: Glucose,Whole Blood 111 mg/dL (75-99)
[2017-01-25 20:57] LABS: Glucose,Whole Blood 137 mg/dL (75-99)
[2017-01-26] MEDS: SODIUM CHLORIDE 0.9% 1,000 ML IV SCH ×5 (02:00→17:52)
[2017-01-26 07:37] LABS: Glucose,Whole Blood 112 mg/dL (75-99)
--- NOTE | 2017-01-26 07:38 | PN ---
76-year-old admitted with diverticulitis and patient also has gastroenteritis, both of which are improving but patient still feels nauseous. Unable to tolerate oral diet. Part of nausea can be from metronidazole too. The patient continues to be nauseous and unable to tolerate even liquid diet today. Metronidazole will be discontinued. REVIEW OF SYSTEMS: CONSTITUTIONAL: No fever, no malaise, no fatigue. HEENT: No recent visual problems or hearing problems. Denied any sore throat. CARDIOVASCULAR: No chest pain, orthopnea, PND, no palpitations, no syncope. PULMONARY: No shortness of breath, no cough, no hemoptysis. GASTROINTESTINAL: As described in HPI NEUROLOGICAL: No headaches, no weakness, no numbness. HEMATOLOGICAL: Denies any bleeding or petechiae. GENITOURINARY: Denies any burning micturition, frequency, or urgency. MUSCULOSKELETAL/RHEUMATOLOGICAL: Denies any joint pain, swelling, or any muscle pain. ENDOCRINE: Denies any polyuria or polydipsia. The rest of the 14 point review of systems is negative. Medications were reviewed. PHYSICAL EXAMINATION: VITAL SIGNS: Temperature 97.0, pulse is 99, respiratory rate of 18, blood pressure is 140/81.saturating at 96% on room. PHYSICAL EXAMINATION: GENERAL: The patient is alert and oriented x3, not in any acute distress. Well developed, well nourished. HEENT: Pupils are round and equally reacting to light. EOMI. No scleral icterus. No conjunctival pallor. Normocephalic, atraumatic. No pharyngeal erythema. No thyromegaly. CARDIOVASCULAR: S1 and S2 present. No murmurs, rubs, or gallops. PULMONARY: Chest is clear to auscultation, no wheezing or crackles. ABDOMEN: Soft, nontender, nondistended, normoactive bowel sounds. No palpable organomegaly. MUSCULOSKELETAL: No joint swelling or deformity. EXTREMITIES: No cyanosis, clubbing, or pedal edema. NEUROLOGICAL: Gross neurological examination did not reveal any focal deficits. SKIN: No rashes. LABORATORY DATA: CBC, CMP are abnormal for elevated WBC count of 14,100. ASSESSMENT AND PLAN: 1. Possible diverticulitis. 2. Possible gastroenteritis. 3. Gastroesophageal reflux disease. 4. Type 2 diabetes mellitus. 5. Benign prostatic hypertrophy. PLAN: Continue with present medications, advance diet as tolerated, continue with IV fluids, continue with antibiotics. If patient is able to tolerate soft diet tomorrow, patient will discharged tomorrow.
[2017-01-26 09:11] LABS: Hemoglobin A1C 5.7 % (4.2-6.1)
[2017-01-26] MEDS: PANTOPRAZOLE 40 MG/10 ML VIAL IV SCH (09:37)
[2017-01-26 09:44] LABS: CH 31.4; CHCM 33.3; HCT 35.2 % (39.0-53.0); HDW 2.48; HGB 11.5 gm/dL (13.0-17.5); MCHC 32.8 g/dL (31.0-37.0); MCV 94.6 fL (80.0-100.0); Mean Platelet Volume 7.3; RBC 3.71 m/uL (4.30-5.90); RDW 12.3 % (11.5-15.5); WBC 14.1 k/uL (3.8-10.6)
[2017-01-26 10:04] LABS: Amylase 59 U/L (30-110); Anion Gap 10 mmol/L; Blood Urea Nitrogen 20 mg/dL (9-20); Calcium 8.2 mg/dL (8.4-10.2); Carbon Dioxide 22 mmol/L (22-30); Chloride 107 mmol/L (98-107); Glucose 104 mg/dL (74-99); Non-African American GFR(MDRD) >60 (>60 ml/min/1.73 sqM); Potassium 3.1 mmol/L (3.5-5.1); Sodium 139 mmol/L (137-145)
--- NOTE | 2017-01-26 11:35 | P.PN ---
<Alicia Jj M - Last Filed: 01/26/17 11:22> Subjective 76-year-old male being seen sitting up in bed patient reports "I've had 3 loose watery stools since midnight continue to have diffuse abdominal discomfort". Patient states the pain feels the same as when he initially came into the hospital. Patient's initial presentation to the emergency room with diffuse abdominal pain with frequent stooling and vomiting inability keep fluids down onset 3 days prior. Patient states that he used to eat something even a popsicle feels nauseated with a loose stool Patient does have a past medical history significant for neuroendocrine tumor of the liver status post portal vein and embolization done in 2010 and [facility]. Patient has been followed by Dr. Lamb hematology oncology with 6 month follow-up visits [facility] Objective - Vital Signs Vital signs: Vital Signs Temp 98.3 F 01/26/17 07:00 Pulse 84 01/26/17 07:00 Resp 18 01/26/17 07:00 BP 140/80 01/26/17 07:00 Pulse Ox 98 01/26/17 07:00 Intake & Output 01/25/17 01/26/17 01/26/17 18:59 06:59 18:59 Intake Total 918 1040 Output Total 0 2 Balance 918 1038 Weight 80.286 kg Intake: Intake, IV Titration 918 800 Amount Levofloxacin 500Mg-D5w 100 Pmx 500 mg In Dextrose/ Water 1 100ml.bag @ 100 mls/hr IVPB Q24H [facility] Rx#: [id number] Sodium Chloride 0.9% 1, 718 800 000 ml @ 120 mls/hr IV . Q8H20M [facility] Rx#:[id number] metroNIDAZOLE-NS PMX 500 100 mg In Saline 1 100ml.bag @ 100 mls/hr IVPB Q8HR [facility] Rx#:[id number] Oral 240 Output: Stool 0 0 Emesis 2 Other: Voiding Method Toilet Toilet Urinal Urinal # Voids 2 1 # Bowel Movements 0 1 - Exam Physical exam 76-year-old male sitting up in bed taking a popsicle continues to report having diffuse abdominal pain with frequent watery stool Lungs essentially clear adequate air movement on room air no cough noted Heart S1-S2 audible and regular Abdomen diffuse tenderness across the abdominal wall active bowel tones well- healed surgical scars noted not distended Extremities no edema noted - Labs CBC & Chem 7: 01/26/17 07:53 01/26/17 07:53 Labs: Abnormal Lab Results - Last 24 Hours (Table) 01/25/17 01/25/17 01/25/17 Range/Units 11:48 17:27 20:55 WBC (3.8-10.6) k/uL RBC (4.30-5.90) m/uL Hgb (13.0-17.5) gm/dL Hct (39.0-53.0) % Potassium (3.5-5.1) mmol/L Glucose (74-99) mg/dL POC Glucose (mg/dL) 113 H 111 H 137 H (75-99) mg/dL Calcium (8.4-10.2) mg/dL 01/26/17 01/26/17 01/26/17 Range/Units 07:33 07:53 07:53 WBC 14.1 H (3.8-10.6) k/uL RBC 3.71 L (4.30-5.90) m/uL Hgb 11.5 L (13.0-17.5) gm/dL Hct 35.2 L (39.0-53.0) % Potassium 3.1 L (3.5-5.1) mmol/L Glucose 104 H (74-99) mg/dL POC Glucose (mg/dL) 112 H (75-99) mg/dL Calcium 8.2 L (8.4-10.2) mg/dL Assessment and Plan Plan: Impression Present on admission diffuse abdominal pain with nausea vomiting frequent stooling CAT scan abdomen shows no evidence of perforation,pneumobila with diffuse diverticulosis Type 2 diabetes controlled hemoglobin A1c 5.7 History of a neuroendocrine cancer Present on admission abdominal pain no evidence of acute peritonitis Plan no indication for immediate surgical intervention at this time DVT and GI prophylaxis Pain control Repeat labs as indicated Will follow Continue with the current plan of care per medicine service The above dictated assessment and findings were discussed with dr hassan . Impression and the plan of care have been dictated as directed. Alicia Jj nurse practitioner acting as a scribe for dr alejandre <Karishma Edmond - Last Filed: 03/16/17 17:43> Objective - Vital Signs Vital signs: Vital Signs Temp 97 F L 01/28/17 15:00 Pulse 98 01/28/17 15:00 Resp 20 01/28/17 15:00 BP 156/87 01/28/17 15:00 Pulse Ox 97 01/28/17 15:00 - Labs CBC & Chem 7: 01/27/17 07:16 01/28/17 06:54 Assessment and Plan (1) Abdominal pain Status: Acute (2) Pneumobilia Status: Acute (3) Type 2 diabetes mellitus Status: Chronic (4) Neuroendocrine cancer Status: Chronic
[2017-01-26 12:13] LABS: Glucose,Whole Blood 138 mg/dL (75-99)
[2017-01-26] MEDS: LEVOFLOXACIN 500MG-D5W PMX 500 MG in DEXTROSE/WATER 1 100ML.BAG IVPB SCH (15:13)
[2017-01-26] MEDS: MAG HYDROX/AL HYDROX/SIMETH 30 ML CUP PO SCH ×3 (15:45→21:08)
[2017-01-26] MEDS: POTASSIUM CHLORIDE 10 MEQ, LIDOCAINE 2% INJ 10 MG in SODIUM CHLORIDE 0.9% 100 ML IVPB SCH ×4 (16:35→20:57)
[2017-01-26] MEDS ORDERED: MAG HYDROX/AL HYDROX/SIMETH 30 ML CUP PO SCH (18:00)
[2017-01-26 20:16] LABS: Glucose,Whole Blood 110 mg/dL (75-99)
[2017-01-26] MEDS: ONDANSETRON 4 MG/2 ML VIAL IVP PRN (21:08)
[2017-01-27] MEDS: POTASSIUM CHLORIDE 10 MEQ, LIDOCAINE 2% INJ 10 MG in SODIUM CHLORIDE 0.9% 100 ML IVPB SCH ×2 (02:54→04:23)
[2017-01-27] MEDS: SODIUM CHLORIDE 0.9% 1,000 ML IV SCH ×2 (04:24→21:12)
[2017-01-27 07:33] LABS: Glucose,Whole Blood 107 mg/dL (75-99)
[2017-01-27] MEDS: PANTOPRAZOLE 40 MG/10 ML VIAL IV SCH (07:46)
[2017-01-27] MEDS: MAG HYDROX/AL HYDROX/SIMETH 30 ML CUP PO SCH ×4 (07:46→21:12)
--- NOTE | 2017-01-27 07:56 | PN ---
Patient is admitted with diverticulitis. Patient also has severe gastritis and gastroenteritis. Most probably peptic ulcer disease because of which patient has severe nausea. Patient is being treated for diverticulitis which is very minimal. Because of uncontrolled nausea I discontinued ( ). Patient is also getting levofloxacin. I will go ahead and consult Gastroenterology with possibility of upper GI endoscopy. Patient does have a neuroendocrine tumor because of which patient apparently had diarrhea for long time and patient was on Questran and he quit taking Questran. REVIEW OF SYSTEMS: CARDIOVASCULAR: No chest pain, no orthopnea, no PND, no palpitations. PULMONARY: Denied any shortness of breath. No cough or hemoptysis. GASTROINTESTINAL: As described in HPI. NEUROLOGIC: No headaches, no weakness, no numbness. Medications were reviewed. PHYSICAL EXAMINATION: VITAL SIGNS: Temperature 98.3, pulse rate 84, respiratory rate 18, blood pressure is 140/80, saturating at 98% on room air. GENERAL: The patient is alert and oriented x3, not in any acute distress. Well developed, well nourished. HEENT: Pupils are round and equally reacting to light. EOMI. No scleral icterus. No conjunctival pallor. Normocephalic, atraumatic. No pharyngeal erythema. No thyromegaly. CARDIOVASCULAR: S1 and S2 present. No murmurs, rubs, or gallops. PULMONARY: Chest is clear to auscultation, no wheezing or crackles. ABDOMEN: Soft, nontender, nondistended, normoactive bowel sounds. No palpable organomegaly. MUSCULOSKELETAL: No joint swelling or deformity. EXTREMITIES: No cyanosis, clubbing, or pedal edema. NEUROLOGICAL: Gross neurological examination did not reveal any focal deficits. SKIN: No rashes. LABORATORY DATA: CBC, CMP are significant for improvement in creatinine to 1.08 from 1.4. Potassium is 3.1, which will be supplemented. ASSESSMENT AND PLAN: 1. Possible diverticulitis. 2. Possible severe gastritis or peptic ulcer disease or gastroenteritis. 3. Type 2 diabetes mellitus. 4. Benign prostatic hypertrophy. 5. History of neuroendocrine tumor in the past. PLAN: To continue with IV fluids. Continue with antibiotics. Gastroenterology consult. Will add Maalox. Patient is able to tolerate soft diet. Can be discharged tomorrow. Patient is so far clear to even eat anything at this time.
[2017-01-27 08:25] LABS: ALT 27 U/L (21-72); AST 20 U/L (17-59); Alkaline Phosphatase 46 U/L (38-126); Anion Gap 7 mmol/L; Blood Urea Nitrogen 12 mg/dL (9-20); Calcium 8.1 mg/dL (8.4-10.2); Carbon Dioxide 25 mmol/L (22-30); Chloride 107 mmol/L (98-107); Glucose 99 mg/dL (74-99); Non-African American GFR(MDRD) >60 (>60 ml/min/1.73 sqM); Potassium 3.6 mmol/L (3.5-5.1); Sodium 139 mmol/L (137-145); Total Bilirubin 0.4 mg/dL (0.2-1.3); Total Protein 4.5 g/dL (6.3-8.2)
[2017-01-27 10:39] LABS: Basophils # (A) 0.1 k/uL (0-0.2); Basophils % (A) 1 %; CH 31.2; CHCM 33.4; Eosinophils # (A) 0.1 k/uL (0-0.7); Eosinophils % (A) 1 %; HCT 31.3 % (39.0-53.0); HGB 10.3 gm/dL (13.0-17.5); Luc # (Auto) 0.25; Luc % (Auto) 2; Lymphocytes # (A) 1.4 k/uL (1.0-4.8); Lymphocytes % (A) 13 %; MCH 30.9 pg (25.0-35.0); MCHC 32.9 g/dL (31.0-37.0); MCV 93.9 fL (80.0-100.0); Mean Platelet Volume 7.6; Monocytes # (A) 0.8 k/uL (0-1.0); Monocytes % (A) 7 %; Neutrophils # (A) 8.2 k/uL (1.3-7.7); Neutrophils % (A) 76 %; RBC 3.34 m/uL (4.30-5.90); RDW 12.3 % (11.5-15.5); WBC 10.8 k/uL (3.8-10.6)
--- NOTE | 2017-01-27 10:54 | P.CONS ---
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 Patient was receiving Sandostatin for chronic diarrhea with his last dose in October. Admitted with abdominal pain, nonbloody diarrhea, nausea, vomiting. Consultation requested for nausea vomiting; EGD evaluation. Currently receiving antibiotics for mild diverticulitis. Clostridium difficile toxin not detected. Apparently up until yesterday patient was having severe nausea vomiting but over the last 24 hours nausea vomiting has significantly improved. He is now tolerating a full liquid diet. Mild lower abdominal discomfort with few loose nonbloody stools. Afebrile. White count 14. Hemoglobin 11.5. EGD October 2016 mild antral gastritis no evidence of peptic ulcer disease retained food in the stomach suggestive of gastroparesis. CT abdomen and pelvis reported prominent sigmoid diverticulosis suspicion for mild acute diverticulitis. Acute enteritis midabdomen involving the duodenum and proximal jejunum. Review of Systems Constitutional: Denies fever, chills, sweats, weight gain, or loss. HEENT: Negative for migraines, blurred vision or loss, earaches, drainage, tinnitus, oral mucosal lesions, dysphagia, or odynophagia. Cardiac: Hypertension. Negative for chest pain, arrhythmias, or palpitation. Respiratory: Negative for shortness of breath, hemoptysis, cough, or sputum production. Gastrointestinal: See HPI for pertinent findings. Genitourinary: BPH. Negative for hematuria, urgency, frequency, polyuria, dysuria, or penile discharge. Musculoskeletal: Negative for muscle aches, swelling, arthritis, and arthralgias. Neurologic: Negative for stroke or TIA. Endocrine: Diabetes mellitus. Negative for thyroid problems. Skin: Negative for rash or itching. Psychiatric: Negative history for depression and anxietymale Past Medical History Past Medical History: Cancer, Diabetes Mellitus, GERD/Reflux, Hyperlipidemia, Hypertension, Prostate Disorder Additional Past Medical History / Comment(s): SEE DR MCQUEEN H&P, SINUS DRAINAGE. BACK PROBLEMS WITH NUMBNESS AND TINGLING IN LEGS. TOENAIL FUNGUS, HX OF SMALL POX . NEUROENDOCRINE CANCER STAGE 4 LIVER CANCER. TINNITUS History of Any Multi-Drug Resistant Organisms: None Reported Past Surgical History: Back Surgery, Cholecystectomy, Orthopedic Surgery, Tonsillectomy Additional Past Surgical History / Comment(s): BACK SURGERY WITH CAGE L-4 & L-5 , KIMBERLY GREAT TOES, PERFORATED ULCER WITH VAGOTOMY AT 28 YRS OLD WITH MICHAEL . SINUS SURGERY. PORTAL VEIN EMBOLIZATION. KIMBERLY CARPAL TUNNEL, KIMBERLY MIDDLE FINGER TRIGGER FINGER, KIMBERLY CATARACT Past Anesthesia/Blood Transfusion Reactions: No Reported Reaction Past Psychological History: No Psychological Hx Reported Smoking Status: Never smoker Past Alcohol Use History: None Reported Past Drug Use History: None Reported - Past Family History Father Family Medical History: Cancer Additional Family Medical History / Comment(s): PROSTATE Sister(s) Family Medical History: Cancer Additional Family Medical History / Comment(s): LUNG Medications and Allergies Home Medications Medication Instructions Recorded Confirmed Type Tamsulosin [Flomax] 0.4 mg PO DAILY 09/30/16 01/24/17 History metFORMIN HCL [Glucophage] 850 mg PO BID 09/30/16 01/24/17 History Multivitamin [Men's Multi-Vitamin] 1 tab PO DAILY 10/13/16 01/24/17 History Aspirin EC [Ecotrin Low Dose] 81 mg PO DAILY 01/22/17 01/24/17 History Finasteride [Proscar] 5 mg PO HS 01/22/17 01/24/17 History Cholestyramine (with Sugar) 4 gm PO BID 01/24/17 01/24/17 History [Questran] Allergies Allergy/AdvReac Type Severity Reaction Status Date / Time adhesive Allergy Unknown Rash/Hives Verified 01/24/17 12:29 propoxyphene napsylate AdvReac Unknown Vertigo Verified 01/24/17 12:29 [From Darcet-N 100] Physical Exam Vitals: Vital Signs Temp Pulse Pulse Resp BP Pulse Ox 01/27/17 07:00 98.4 F 68 18 129/76 92 L 01/27/17 00:00 80 78 16 01/26/17 21:35 99.0 F 78 16 125/69 96 01/26/17 15:00 98.6 F 80 18 140/75 98 Intake and Output 01/26/17 01/27/17 01/27/17 22:59 06:59 14:59 Intake Total 475 Output Total 200 500 Balance 275 -500 Intake: Oral 475 Output: Urine 200 500 Other: Voiding Method Toilet Urinal General appearance: The patient is alert, oriented, in no acute distress. HET: Head is normocephalic and atraumatic. Pupils are equal and reactive. Oropharynx is clear without lesions. Neck: Supple without lymphadenopathy. Trachea midline. Heart: S1 S2. Regular rate and rhythm. Lungs: No crackles or wheezes are heard. Abdomen: Soft, bilateral lower abdominal mild tenderness greater on left than right, nondistended with bowel sounds. No peritoneal signs. No palpable organomegaly or masses. Extremities: Normal skin color and turgor. No cyanosis, rash, ulceration, clubbing, or edema. Radial and pedal pulses are 2/4 bilaterally. Neurological: No focal deficits. Strength and sensation are grossly intact. Results CBC & Chem 7: 01/26/17 07:53 01/27/17 07:16 Labs: Abnormal Lab Results - Last 24 Hours (Table) 01/26/17 01/26/17 01/27/17 Range/Units 12:05 20:13 00:07 Potassium 3.2 L (3.5-5.1) mmol/L POC Glucose (mg/dL) 138 H 110 H (75-99) mg/dL Calcium (8.4-10.2) mg/dL Total Protein (6.3-8.2) g/dL Albumin (3.5-5.0) g/dL 01/27/17 01/27/17 Range/Units 07:16 07:25 Potassium (3.5-5.1) mmol/L POC Glucose (mg/dL) 107 H (75-99) mg/dL Calcium 8.1 L (8.4-10.2) mg/dL Total Protein 4.5 L (6.3-8.2) g/dL Albumin 2.2 L (3.5-5.0) g/dL CT scan - abdomen: report reviewed (Reviewed by Dr. Edwards) Assessment and Plan (1) Nausea vomiting and diarrhea Narrative/Plan: Possible gastritis possible sequelae as a result from acute mild sigmoid diverticulitis with history of underlying suspected gastroparesis. Status: Acute (2) Sigmoid diverticulitis Status: Acute (3) Gastroparesis Status: Chronic (4) Neuroendocrine cancer Narrative/Plan: History of liver neuroendocrine tumor. Status: Chronic (5) Type 2 diabetes mellitus Status: Chronic Plan: 1. EGD not planned at this time as patient's symptoms have improved. Patient is tolerating full liquid diet and requesting discharge. Continue with antinausea medications small frequent meals as tolerated. We'll follow as needed. Discharge per medicine. Thank you for this kind referral and the opportunity to participate in the care of your patient. This consultation was discussed with Dr. Edwards. The impression and plan of care have been directed as dictated.
[2017-01-27 11:23] LABS: Glucose,Whole Blood 110 mg/dL (75-99)
[2017-01-27] MEDS: metroNIDAZOLE-NS PMX 500 MG in SALINE 1 100ML.BAG IVPB SCH ×3 (12:49→23:39)
[2017-01-27] MEDS: INSULIN LISPRO (humaLOG) 300 UNIT/3 ML VIAL SQ SCH ×3 (13:01→21:12)
--- NOTE | 2017-01-27 14:27 | P.PN ---
Subjective 76-year-old being seen resting in bed. Patient states that he continues to have lower abdominal discomfort with less loose nonbloody stools this morning. Tolerating a diet did note the white count is down 10.8 this morning was 14.1 the day before did note GIs recommendations indicate that an EGD is not planned at this time secondary to patient's symptoms showing an improvement Objective - Vital Signs Vital signs: Vital Signs Temp 98.4 F 01/27/17 07:00 Pulse 68 01/27/17 07:00 Resp 18 01/27/17 07:00 BP 129/76 01/27/17 07:00 Pulse Ox 92 L 01/27/17 07:00 Intake & Output 01/26/17 01/27/17 01/27/17 18:59 06:59 18:59 Intake Total 475 1180 Output Total 700 Balance -225 1180 Intake: Intake, IV Titration 700 Amount Sodium Chloride 0.9% 1, 600 000 ml @ 75 mls/hr IV . [id number] MARIUSZ Rx#:[id number] metroNIDAZOLE-NS PMX 500 100 mg In Saline 1 100ml.bag @ 100 mls/hr IVPB Q8HR MARIUSZ Rx#:[id number] Oral 475 480 Output: Urine 700 Other: Voiding Method Toilet Toilet Toilet Urinal Urinal Urinal # Voids 1 3 - Exam Physical exam 76-year-old male resting in bed family at bedside patient states feeling less abdominal discomfort has had a couple loose nonbloody nonpitting stools this morning pleasant cooperative oriented 3 Lungs essentially clear with adequate air movement on room air no cough noted Heart S1-S2 audible and regular denying chest pain Abdomen soft bilateral lower abdominal tenderness greater on the left than the right not distended bowel tones present states tolerating the full liquid diet with no nausea Extremities no edema noted - Labs CBC & Chem 7: 01/27/17 07:16 01/27/17 07:16 Labs: Abnormal Lab Results - Last 24 Hours (Table) 01/26/17 01/27/17 01/27/17 Range/Units 20:13 00:07 07:16 WBC (3.8-10.6) k/uL RBC (4.30-5.90) m/uL Hgb (13.0-17.5) gm/dL Hct (39.0-53.0) % Neutrophils # (1.3-7.7) k/uL Potassium 3.2 L (3.5-5.1) mmol/L POC Glucose (mg/dL) 110 H (75-99) mg/dL Calcium 8.1 L (8.4-10.2) mg/dL Total Protein 4.5 L (6.3-8.2) g/dL Albumin 2.2 L (3.5-5.0) g/dL 01/27/17 01/27/17 01/27/17 Range/Units 07:16 07:25 11:21 WBC 10.8 H (3.8-10.6) k/uL RBC 3.34 L (4.30-5.90) m/uL Hgb 10.3 L (13.0-17.5) gm/dL Hct 31.3 L (39.0-53.0) % Neutrophils # 8.2 H (1.3-7.7) k/uL Potassium (3.5-5.1) mmol/L POC Glucose (mg/dL) 107 H 110 H (75-99) mg/dL Calcium (8.4-10.2) mg/dL Total Protein (6.3-8.2) g/dL Albumin (3.5-5.0) g/dL Assessment and Plan Plan: Impression Present on admission diffuse abdominal pain with nausea vomiting frequent stooling CAT scan abdomen shows no evidence of perforation,pneumobila with diffuse diverticulosis suspicious for mild acute diverticulitis Type 2 diabetes controlled hemoglobin A1c 5.7 History of a neuroendocrine cancer Present on admission abdominal pain no evidence of acute peritonitis Computed tomography scan of the abdomen pelvis suspicious for sigmoid diverticulitis Plan no indication for surgical intervention at this time DVT and GI prophylaxis Pain control Repeat labs as indicated Continue Levaquin and Flagyl as ordered Continue with the current plan of care per medicine service From a surgical perspective patient could be discharged defer to the timing of the discharge to the attending Once discharge patient should follow-up with [facility] surgical service The above dictated assessment and findings were discussed with dr hassan . Impression and the plan of care have been dictated as directed. Alicia Jj nurse practitioner acting as a scribe for dr alejandre
[2017-01-27] MEDS: LEVOFLOXACIN 500MG-D5W PMX 500 MG in DEXTROSE/WATER 1 100ML.BAG IVPB SCH (15:27)
[2017-01-27 17:10] LABS: Glucose,Whole Blood 118 mg/dL (75-99)
[2017-01-27 19:59] LABS: Glucose,Whole Blood 116 mg/dL (75-99)
[2017-01-28 07:11] LABS: Glucose,Whole Blood 116 mg/dL (75-99)
[2017-01-28] MEDS ORDERED: PANTOPRAZOLE 40 MG TABLET PO SCH (07:30)
[2017-01-28 07:43] LABS: ALT 34 U/L (21-72); AST 31 U/L (17-59); Alkaline Phosphatase 63 U/L (38-126); Anion Gap 6 mmol/L; Blood Urea Nitrogen 13 mg/dL (9-20); Calcium 8.6 mg/dL (8.4-10.2); Carbon Dioxide 28 mmol/L (22-30); Chloride 104 mmol/L (98-107); Glucose 113 mg/dL (74-99); Non-African American GFR(MDRD) 60 (>60 ml/min/1.73 sqM); Potassium 3.4 mmol/L (3.5-5.1); Sodium 138 mmol/L (137-145); Total Bilirubin 0.4 mg/dL (0.2-1.3); Total Protein 5.3 g/dL (6.3-8.2)
[2017-01-28] MEDS: INSULIN LISPRO (humaLOG) 300 UNIT/3 ML VIAL SQ SCH ×2 (09:39→13:08)
[2017-01-28] MEDS: MAG HYDROX/AL HYDROX/SIMETH 30 ML CUP PO SCH ×2 (09:44→13:12)
--- NOTE | 2017-01-28 10:34 | PN ---
DATE OF SERVICE: 01/27/2017 INTERVAL HISTORY: Mr. Chávez is a 76-year-old male with known history of hypertension, diabetes mellitus type 2 and history of gastroparesis was admitted to the hospital with diarrhea and abdominal pain. Patient was found to have acute sigmoid diverticulitis. Currently on antibiotics in the form of levofloxacin and Flagyl has been added. Otherwise, patient also having possible gastritis and nausea, which is improved at this time. The patient also has history of neuroendocrine tumor in the liver. The patient apparently has been having diarrhea after about a half an hour with each meal. Patient is in followup with Dr. Villarreal as an outpatient. Patient was Questran for chronic diarrhea at home, which he has not been taking recently. Otherwise, the patient's abdominal pain is much improved now. Nausea has improved. Patient was able to tolerate a p.o. diet today morning. No fever. No chills. No acute overnight issues. The patient otherwise still having diarrhea. REVIEW OF SYSTEMS: CONSTITUTIONAL: No fever, no chills. RESPIRATORY: No cough or sputum production. CARDIOVASCULAR: No chest pain or shortness of breath. ABDOMEN: No nausea or vomiting. Patient does have diarrhea. No abdominal pain. GENITOURINARY: Negative. ENDOCRINE: Negative. PSYCHIATRIC: Negative. All other 14-point review of systems negative except as above. CURRENT MEDICATIONS: Reviewed. PHYSICAL EXAMINATION: A 76-year-old male, lying in the bed. Awake, alert, oriented x3, appears to be in no apparent distress. VITALS: Blood pressure 132/70, pulse 88, respirations 18, temperature afebrile, pulse ox 98% on room air. HEENT: Atraumatic, normocephalic. Neck is supple. No JVD. CVS EXAM: S1 and S2 heard. No murmurs, no gallop, no rub. LUNGS: Bilateral air entry is present. No wheezing. No crackles. ABDOMEN: Soft, nontender. Bowel sounds are present. TABLEAU LEAD: Awake, alert, oriented x3. No focal neurologic deficits. Cranial nerves grossly intact. EXTREMITIES: No edema. Pulses palpable bilaterally. No clubbing or cyanosis. PSYCHIATRIC: Cooperative. LABORATORY DATA: WBC 10.8, hemoglobin 10.3, platelets 262. Sodium 139, potassium 3.6, chloride 107, bicarb is 25. BUN 12, creatinine 1.12. Albumin 2.2. IMPRESSION: 1. Acute sigmoid diverticulitis. 2. Possible gastritis and gastroenteritis, improving now. 3. History of gastroparesis. 4. Type 2 diabetes mellitus. 5. Benign prostatic hypertrophy. 6. History of neuroendocrine tumor in the liver. 7. Acute on chronic diarrhea. 8. Nausea, vomiting, improved now. DISCUSSION AND PLAN: Patient will be continued on IV fluids and encourage p.o. Will continue the antibiotics in the form of levofloxacin and Flagyl and Gastroenterology is following this patient. Patient was started back on Questran for chronic diarrhea. We will continue the current management and further recommendations based on the clinical course.
[2017-01-28] MEDS: metroNIDAZOLE-NS PMX 500 MG in SALINE 1 100ML.BAG IVPB SCH ×2 (10:41→16:08)
[2017-01-28] MEDS ORDERED: FINASTERIDE 5 MG TAB PO SCH ×3 (10:41→21:00)
[2017-01-28] MEDS ORDERED: TAMSULOSIN 0.4 MG CAP.ER.24H PO SCH (10:45)
[2017-01-28 11:37] LABS: Glucose,Whole Blood 117 mg/dL (75-99)
[2017-01-28] MEDS ORDERED: HYDROmorphone 1 MG/ML 1 ML SYRINGE IVP PRN (14:00)
[2017-01-28] MEDS ORDERED: LIDOCAINE URO-JET JELLY 2% 5 ML KIT URETHRAL ONE (14:46)
[2017-01-28 15:47] VITALS: BP 156/87; PULSE 98; RESP 20; TEMP 97
[2017-01-28] MEDS: SODIUM CHLORIDE 0.9% 1,000 ML IV SCH (15:51)
[2017-01-28] MEDS: LEVOFLOXACIN 500MG-D5W PMX 500 MG in DEXTROSE/WATER 1 100ML.BAG IVPB SCH ×2 (15:56→16:08)
--- NOTE | 2017-01-28 22:45 | CONS ---
DATE OF CONSULTATION: 01/28/2017. REASON FOR CONSULTATION: Urinary retention. HISTORY: The patient is a 76-year-old male originally admitted on 01/24 for evaluation of abdominal pain associated with nausea, vomiting, and diarrhea. At the time of admission, the patient had a white blood count of 14,100. CT scan of the abdomen and pelvis showed evidence of sigmoid diverticulosis and probable duodenal and proximal jejunal enteritis. The patient has been treated with Flagyl and Levaquin on the assumption that he has acute diverticulitis. His abdominal pain and diarrhea resolved. Unfortunately, he developed increasing lower abdominal discomfort and was discovered to have a postvoid residual of over 700 mL when he was bladder scanned earlier today. A coude' catheter was inserted and drained 750 mL. The patient's lower abdominal pain has resolved. The patient has no previous history of urinary retention. 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 Hawthorne. He was last seen in 12/2016. He has had been taking tamsulosin and finasteride prior to admission, but unfortunately the tamsulosin was not continued following admission. He did have a dose of tamsulosin this morning. The patient has an enlarged prostate with a chronically elevated PSA that was 9.6, when last checked. He says he usually voids every 2 to 3 hours during the day and 4 or 5 times at night. He usually feels he voids completely. Patient's past medical history is significant in regard to a neuroendocrine tumor of the liver, which had previously been treated with portal vein embolectomy at [facility] approximately 5 years ago. He had been taking Sandostatin until 10/2016. He has a history of diabetes mellitus and GERD. He has previously undergone cholecystectomy, vagotomy and pyloroplasty, cataract surgery, bilateral carpal tunnel repair and surgery on the lumbosacral spine. Medications on admission included: 1. Tamsulosin. 2. Finasteride. 3. Glucophage. 4. Questran. 5. Aspirin. 6. The patient is also taking Flagyl and Levaquin at the present time. He has no allergies to medications. REVIEW OF SYSTEMS: Significant mainly in regard to the above. PHYSICAL EXAM: Reveals a well-developed 76-year-old male who is alert and oriented. Blood pressure 148/69. HEENT: No supraclavicular or cervical adenopathy. No scleral icterus. ABDOMEN: Soft-no hepatosplenomegaly. No suprapubic tenderness. GENITALIA: Urethral catheter is in place and is draining clear urine. Both testicles are descended. No hernias noted. RECTAL: Not performed as this was done by Dr. Hawthorne one month ago and no abnormalities were noted other than an enlarged prostate. Laboratory evaluation from today includes a BUN 13, creatinine 1.19, BUN and creatinine on admission were 27/1.24. Urinalysis at the time of admission was unremarkable. IMPRESSION: 1. Urinary retention. This is most likely related to discontinuing tamsulosin at the time of admission. Some individuals are very sensitive to the use of alpha blockers and stopping the alpha blockers can precipitate urinary retention. 2. Recent nausea, vomiting, and diarrhea-It is unclear whether this was related to diverticulitis or enteritis. The patient apparently had also been taking Sandostatin prior to October 2016 and it is unclear whether stopping this may have very been a contributory factor. RECOMMENDATION: The patient can be discharged with an indwelling catheter in place. I would suggest leaving the catheter in place for at least 48 to 72 hours prior to removal.The patient has been instructed in catheter removal technique. He will remove the catheter in the morning of 02/02 and will be seen back in the office later in the day to check a postvoid residual. The patient will be continued on tamsulosin and finasteride. Thank you for allowing me to participate in the care of this gentleman. BLANKA
--- NOTE | 2017-01-30 21:26 | DS ---
DATE OF ADMISSION: 01/24/2017 DATE OF DISCHARGE: 01/28/2017 DISCHARGE DIAGNOSES: 1. Acute sigmoid diverticulitis. 2. Acute on chronic diarrhea, improved. 3. Possible gastritis and gastroenteritis, improved symptomatically. 4. Type 2 diabetes mellitus. 5. Neuroendocrine tumor of the liver. 6. Gastroparesis. 7. Benign prostatic hypertrophy. 8. Acute on chronic diarrhea. 9. Nausea and vomiting, improved now. 10. Acute urinary retention; started back on Flomax and Proscar. HOSPITAL COURSE: Mr. Chávez is a 76-year-old male admitted to the hospital with diarrhea and abdominal pain. Patient was found to have acute sigmoid diverticulitis. Patient was continued on antibiotics in the form of levofloxacin and Flagyl. Patient did improve symptomatically. Diarrhea improved as well. Otherwise, patient has underlying chronic diarrhea. Patient developed urinary retention. Patient does take Flomax and Proscar at home. Patient was placed on a Graves catheter and Urology was consulted. Patient was started back on his home medications of Flomax and Proscar. Patient was seen by Urology, who recommend keeping the Graves catheter until followup in the clinic. Otherwise, urine retention has been resolved from placing the Graves catheter. Patient is symptomatically much improved now. Patient is advised to follow with Dr. Villarreal for chronic diarrhea and Gastroenterology and Urology for followup for urinary retention. Otherwise, patient is stable to be discharged home. DISCHARGE PHYSICAL EXAMINATION: A 76-year-old male lying in bed comfortably. Awake and alert. Oriented x3. Appears to be in distress. VITALS: Blood pressure is 148/69. Pulse is 69, respiration 18, temperature afebrile, pulse ox 98% on room air. HEENT: Atraumatic, normocephalic. Neck is supple. No JVD. CVS EXAM: S1, S2 heard. No murmurs. No gallop. No rub. LUNGS: Bilateral air entry is present. No wheezing. No crackles. ABDOMEN: Soft, nontender. Bowel sounds present. ABRASIVE GRINDER: Awake, alert and oriented x3. No focal deficit. EXTREMITIES: No edema. Pulses palpable bilaterally. No clubbing or cyanosis. PSYCHIATRIC: Cooperative. Laboratory data reviewed. Discharge physical examination done. Discharge medications include: 1. Tamsulosin 0.4 mg p.o. daily. 2. Metformin 850 mg p.o. b.i.d. 3. Multivitamins 1 tablet p.o. daily. 4. Aspirin 81 mg p.o. daily. 5. Proscar 5 mg p.o. at bedtime. 6. Cholestyramine 4 grams p.o. b.i.d. 7. Levofloxacin 500 mg p.o. daily. 8. Zofran 4 mg p.o. q.8 hourly p.r.n. for nausea, vomiting. 9. Protonix 40 mg p.o. before breakfast. 10. Metronidazole 500 mg p.o. q.8 hourly for 2 days. Follow up with Dr. Hawthorne. Follow up with Dr. Villarreal. Follow up with Dr. Edwards. Home with self-care. Activity as tolerated. Heart-healthy diet.
== END 2017-01-28 17:48 | disposition home or self-care (01) | DRG 392 ==
LOC: EC 07:11 → 5MS5E 11:59
PROVIDERS: ADMIT Internal Medicine; ATTEND Internal Medicine
PROC: 0T9B70Z Drainage of Bladder with Drainage Device, Via Natural or Artificial Opening (ICD-10-PCS; principal; 2017-01-28)
DX: K57.32 Diverticulitis of large intestine without perforation or abscess without bleeding (principal); K31.84 Gastroparesis; Z94.4 Liver transplant status; E11.43 Type 2 diabetes mellitus with diabetic autonomic (poly)neuropathy; K21.9 Gastro-esophageal reflux disease without esophagitis; K27.9 Peptic ulcer, site unspecified, unspecified as acute or chronic, without hemorrhage or perforation; R94.4 Abnormal results of kidney function studies; R93.2 Abnormal findings on diagnostic imaging of liver and biliary tract; K52.9 Noninfective gastroenteritis and colitis, unspecified; T37.8X5A Adverse effect of other specified systemic anti-infectives and antiparasitics, initial encounter; K29.60 Other gastritis without bleeding; N32.0 Bladder-neck obstruction; R97.20 Elevated prostate specific antigen [PSA]; K57.30 Diverticulosis of large intestine without perforation or abscess without bleeding; R33.8 Other retention of urine; N40.1 Benign prostatic hyperplasia with lower urinary tract symptoms; D72.829 Elevated white blood cell count, unspecified; E78.5 Hyperlipidemia, unspecified; I10 Essential (primary) hypertension; R53.83 Other fatigue; Z79.84 Long term (current) use of oral hypoglycemic drugs; Z85.05 Personal history of malignant neoplasm of liver; Z87.11 Personal history of peptic ulcer disease; Z86.19 Personal history of other infectious and parasitic diseases; Z80.42 Family history of malignant neoplasm of prostate; Z88.5 Allergy status to narcotic agent; Z91.048 Other nonmedicinal substance allergy status; Z90.49 Acquired absence of other specified parts of digestive tract; Z79.82 Long term (current) use of aspirin; Z79.899 Other long term (current) drug therapy; Z80.1 Family history of malignant neoplasm of trachea, bronchus and lung; Z98.1 Arthrodesis status; Z98.42 Cataract extraction status, left eye; Z98.41 Cataract extraction status, right eye; Z86.69 Personal history of other diseases of the nervous system and sense organs; Z92.21 Personal history of antineoplastic chemotherapy
CPT/HCPCS: 36415; 71020; 74000; 74022; 74177; 80048; 80053; 81003; 82150; 82550; 82553; 83036; 83605; 83690; 83735; 84100; 84132; 84484; 85025; 85027; 85610; 85730; 87040; 87086; 87324; 87328; 87329; 87502; 93005; 96360; 96361; 96372; 96374; 96375; 96376; 99284; 99285

== ENCOUNTER 2017-03-19 07:59 | Day surgery (SDC) | payer MEDICARE ==
[2017-03-17 11:13] VITALS: BMI 24.4
[~2017-03-19 07:59] MED LIST: LACTATED RINGERS 1,000 ML IV SCH
[2017-03-19] MEDS ORDERED: LIDOCAINE 1% 20 ML VIAL (10MG/ML) FOR IV START INTRADERMA ONE (08:55)
[2017-03-19] MEDS ORDERED: ONDANSETRON 4 MG/2 ML VIAL IVP STA (08:58)
[2017-03-19 09:02] VITALS: TEMP 97.5
[2017-03-19 09:03] LABS: Glucose,Whole Blood 121 mg/dL (75-99)
[2017-03-19] MEDS ORDERED: fentaNYL (PF) 50 MCG/ML 2 ML AMP IV ONE (09:03)
[2017-03-19] MEDS ORDERED: LIDOCAINE 1% INJ 10MG/ML (20 ML MDV) ONE (09:41)
[2017-03-19] MEDS ORDERED: PROPOFOL 10 MG/ML 20 ML VIAL IV ONE (09:41)
--- NOTE | 2017-03-19 10:15 | P.PCN ---
Date of Procedure: 03/19/17 Procedure(s) Performed: Procedure: Total colonoscopy. Preoperative diagnosis: Recent episode of diverticulitis. Postoperative diagnosis: Left-sided diverticulosis with no evidence of strictures, polyps or cancer. Preparation: HalfLytely prep. Sedation: Was provided by anesthesia. Brief clinical history: The patient is a 76-year-old male who was hospitalized in January 2017 for 6 days because of a bout of diverticulitis. He has history of peptic ulcer disease for which he underwent pyloroplasty and vagotomy years back. He was diagnosed in the summer of 2010 with well-differentiated neuroendocrine tumor of the liver for which he underwent chemoembolization. He was maintained on Sandostatin injection once a month until October 2016 and has had repeat CT scans every 6 months. He had multiple upper and lower endoscopies in the past. This evaluation is to assess for possible precipitating causes or complications of diverticulitis. Procedure: With the patient on his left lateral decubitus position and after informed consent and adequate sedation, the perianal area was inspected and it did not show any fissures or fistulas. There were no masses felt on digital rectal examination. The Olympus CFQ 160L video colonoscope was then inserted in the rectum in the usual fashion and advanced to the cecum. There were multiple diverticular orifices seen scattered along the left side of the bowel with no evidence of acute diverticulitis or strictures. No polyps or tumors were seen. The mucosa appeared healthy. I retroflexed the endoscope in the rectum before the endoscope was withdrawn. The patient tolerated the procedure well. Plan: The patient was reassured. Discussed dietary measures. He will follow up with you as planned and further plans will be made based on his course.
[2017-03-19 10:29] VITALS: BP 139/94; PULSE 87; RESP 18
== END 2017-03-19 11:16 | disposition home or self-care (01) ==
LOC: ORWHC2ENDO 07:59
DX: K57.30 Diverticulosis of large intestine without perforation or abscess without bleeding (principal); Z87.11 Personal history of peptic ulcer disease; Z85.05 Personal history of malignant neoplasm of liver; E11.9 Type 2 diabetes mellitus without complications; N40.0 Benign prostatic hyperplasia without lower urinary tract symptoms; K21.9 Gastro-esophageal reflux disease without esophagitis; Z79.84 Long term (current) use of oral hypoglycemic drugs; Z79.82 Long term (current) use of aspirin; Z79.899 Other long term (current) drug therapy; Z88.8 Allergy status to other drugs, medicaments and biological substances; Z91.048 Other nonmedicinal substance allergy status
CPT/HCPCS: 45378; J2405; J2001; J3010; J2704

== ENCOUNTER 2017-03-20 08:17 | Inpatient (IN) | payer MEDICARE ==
[2017-03-20] MEDS ORDERED: HYDROmorphone 1 MG/ML 1 ML SYRINGE IVP STA (08:35)
[2017-03-20] MEDS ORDERED: ONDANSETRON 4 MG/2 ML VIAL IVP STA (08:35)
[2017-03-20] MEDS ORDERED: SODIUM CHLORIDE 0.9% 1,000 ML IV ONE ×2 (08:35→10:21)
--- NOTE | 2017-03-20 08:41 | ED ---
Nausea/Vomiting/Diarrhea HPI - General Source: patient, RN notes reviewed Mode of arrival: wheelchair Limitations: no limitations <Halie Dorsey - Last Filed: 03/20/17 10:24> <Sriram Yusuf - Last Filed: 03/20/17 11:32> - General Chief complaint: Nausea/Vomiting/Diarrhea Stated complaint: ABDOMINAL PAIN, VOMITING Time Seen by Provider: 03/20/17 08:24 - History of Present Illness Initial comments: Patient is a 77-year-old male presents to the emergency room for evaluation abdominal pain, nausea and vomiting. Patient's son is present with patient. Patient's son states that patient had a colonoscopy yesterday by Dr. Edwards. Patient's son states that patient was nauseous before the procedure. Patient's son states after procedure was done patient was able eat breakfast. Patient's son states around midnight patient began complaining of excruciating abdominal pain along with vomiting. Patient's son states that patient is vomiting up dark black vomit. Patient's son states that patient has liver cancer. Patient' s son states that patient has had cancer for the past 5 years. Patient son states the patient has not been on any treatment for liver cancer since October. Patient's son states that he has been following up with Dr. Villarreal regarding his liver cancer. Patient is currently on metformin for diabetes. Patient states has a history of perforated stomach ulcer, appendectomy and cholecystectomy. Patient states he's having 10 out of 10 pain in his left upper quadrant and midepigastric area. Patient denies blood in stools. Patient denies dark tarry stools. Patient states he had one soft bowel movement this morning. Patient denies fevers or chills. Patient denies chest pain or shortness of breath. Patient denies headache or dizziness. (Halie Dorsey) - Related Data Home Medications Medication Instructions Recorded Confirmed Tamsulosin [Flomax] 0.4 mg PO DAILY 09/30/16 03/20/17 metFORMIN HCL [Glucophage] 850 mg PO BID 09/30/16 03/20/17 Multivitamin [Men's Multi-Vitamin] 1 tab PO DAILY 10/13/16 03/20/17 Aspirin EC [Ecotrin Low Dose] 81 mg PO DAILY 01/22/17 03/20/17 Finasteride [Proscar] 5 mg PO DAILY 01/22/17 03/20/17 Cholestyramine (with Sugar) 4 gm PO BID 01/24/17 03/20/17 [Questran Packet] fentaNYL 12MCG/HR PATCH [Duragesic 1 patch TRANSDERM Q72H 03/17/17 03/20/17 12MCG/HR] Allergies Allergy/AdvReac Type Severity Reaction Status Date / Time adhesive Allergy Unknown Rash/Hives Verified 03/20/17 09:23 propoxyphene napsylate AdvReac Unknown Vertigo Verified 03/20/17 09:23 [From Darvocet-N 100] Review of Systems ROS Other: All systems not noted in ROS Statement are negative. <Halie Dorsey - Last Filed: 03/20/17 10:24> ROS Other: All systems not noted in ROS Statement are negative. <Sriram Yusuf - Last Filed: 03/20/17 11:32> ROS Statement: Those systems with pertinent positive or pertinent negative responses have been documented in the HPI. Past Medical History Past Medical History: Cancer, Diabetes Mellitus, GERD/Reflux, Prostate Disorder Additional Past Medical History / Comment(s): SINUS DRAINAGE. BACK PROBLEMS WITH NUMBNESS AND TINGLING FROM WAIST DOWN LEGS. TOENAIL FUNGUS, HX OF SMALL POX . NEUROENDOCRINE CANCER STAGE 4 LIVER CANCER. TINNITUS, DIVERTICULITIS, DIARRHEA History of Any Multi-Drug Resistant Organisms: None Reported Past Surgical History: Back Surgery, Cholecystectomy, Orthopedic Surgery, Tonsillectomy Additional Past Surgical History / Comment(s): BACK SURGERY WITH CAGE L-4 & L-5 , KIMBERLY GREAT TOES, PERFORATED ULCER WITH VAGOTOMY AT 28 YRS OLD WITH MICHAEL . SINUS SURGERY. PORTAL VEIN EMBOLIZATION. KIMBERLY CARPAL TUNNEL, KIMBERLY MIDDLE FINGER TRIGGER FINGER, KIMBERLY CATARACT Past Anesthesia/Blood Transfusion Reactions: No Reported Reaction Past Psychological History: No Psychological Hx Reported Smoking Status: Never smoker Past Alcohol Use History: None Reported Past Drug Use History: None Reported - Past Family History Father Family Medical History: Cancer Additional Family Medical History / Comment(s): PROSTATE Sister(s) Family Medical History: Cancer Additional Family Medical History / Comment(s): LUNG <Halie Dorsey - Last Filed: 03/20/17 10:24> General Exam Limitations: no limitations General appearance: alert, in no apparent distress Head exam: Present: atraumatic, normocephalic, normal inspection Eye exam: Present: normal appearance ENT exam: Present: normal exam Neck exam: Present: normal inspection Respiratory exam: Present: normal lung sounds bilaterally. Absent: respiratory distress Cardiovascular Exam: Present: normal rhythm, tachycardia, normal heart sounds GI/Abdominal exam: Present: tenderness (Diffuse), guarding (Voluntary guarding on palpation). Absent: rebound Extremities exam: Present: normal inspection Back exam: Present: normal inspection Neurological exam: Present: alert, oriented X3, CN II-XII intact Psychiatric exam: Present: normal affect, anxious Skin exam: Present: warm, dry, intact, normal color. Absent: rash <Halie Dorsey - Last Filed: 03/20/17 10:24> General appearance: alert, in no apparent distress Head exam: Present: atraumatic, normocephalic, normal inspection Eye exam: Present: normal appearance, PERRL, EOMI. Absent: scleral icterus, conjunctival injection, periorbital swelling ENT exam: Present: mucous membranes dry, mucous membranes moist Neck exam: Present: normal inspection. Absent: tenderness, meningismus, lymphadenopathy Respiratory exam: Present: normal lung sounds bilaterally. Absent: respiratory distress, wheezes, rales, rhonchi, stridor Cardiovascular Exam: Present: normal rhythm, tachycardia, normal heart sounds. Absent: systolic murmur, diastolic murmur, rubs, gallop, clicks GI/Abdominal exam: Present: soft, tenderness (epigastric), guarding, normal bowel sounds. Absent: distended, rebound, rigid Extremities exam: Present: normal inspection, full ROM, normal capillary refill. Absent: tenderness, pedal edema, joint swelling, calf tenderness Back exam: Present: normal inspection Neurological exam: Present: alert, oriented X3, CN II-XII intact Psychiatric exam: Present: normal affect, normal mood Skin exam: Present: warm, dry, intact, normal color. Absent: rash <Sriram Yusuf - Last Filed: 03/20/17 11:32> - General Exam Comments Initial Comments: Sitting in exam room, mild distress secondary to pain, actively vomiting coffee- ground emesis (Halie Dorsey) Course <Halie Dorsey - Last Filed: 03/20/17 10:24> <Sriram Yusuf - Last Filed: 03/20/17 11:32> Vital Signs 03/20/17 03/20/17 03/20/17 08:24 10:26 11:20 Temperature 98.3 F 98.3 F Pulse Rate 116 H 109 H 102 H Respiratory 26 H 18 Rate Blood Pressure 159/92 141/77 155/89 O2 Sat by Pulse 100 98 96 Oximetry - Reevaluation(s) Reevaluation #1: 03/20/17 11:31 Patient is having adequate pain control at this time, will be adequately fluid resuscitated, kept nothing by mouth (Sriram Yusuf) Medical Decision Making - Lab Data Result diagrams: 03/20/17 08:45 03/20/17 08:45 <Halie Dorsey - Last Filed: 03/20/17 10:24> - Lab Data Result diagrams: 03/20/17 08:45 03/20/17 08:45 <Sriram Yusuf - Last Filed: 03/20/17 11:32> - Medical Decision Making Patient is a 77-year-old male presents to the emergency room for evaluation of abdominal pain, vomiting. Labs significant for acute pancreatitis. Case discussed with on [facility] [employer] for Dr. Lamar. Patient will be admitted for pain control , fluids, NPO. (Halie Dorsey) 77 male here for evaluation of abdominal pain. Patient severe about pain with positive for pancreatitis. Patient will be admitted for IV hydration, nothing by mouth, pain control and symptomatic therapy (Sriram Yusuf) - Lab Data Lab Results 03/20/17 03/20/17 03/20/17 Range/Units 08:45 08:45 08:45 WBC 18.8 H (3.8-10.6) k/uL RBC 4.33 (4.30-5.90) m/uL Hgb 13.6 D (13.0-17.5) gm/dL Hct 40.0 (39.0-53.0) % MCV 92.3 (80.0-100.0) fL MCH 31.5 (25.0-35.0) pg MCHC 34.1 (31.0-37.0) g/dL RDW 12.6 (11.5-15.5) % Plt Count 398 (150-450) k/uL Neutrophils % 86 % Lymphocytes % 10 % Monocytes % 3 % Eosinophils % 0 % Basophils % 0 % Neutrophils # 16.1 H (1.3-7.7) k/uL Lymphocytes # 1.9 (1.0-4.8) k/uL Monocytes # 0.6 (0-1.0) k/uL Eosinophils # 0.1 (0-0.7) k/uL Basophils # 0.1 (0-0.2) k/uL Sodium 141 (137-145) mmol/L Potassium 3.5 (3.5-5.1) mmol/L Chloride 98 (98-107) mmol/L Carbon Dioxide 26 (22-30) mmol/L Anion Gap 17 mmol/L BUN 29 H (9-20) mg/dL Creatinine 1.23 (0.66-1.25) mg/dL Est GFR (MDRD) Af Amer >60 (>60 ml/min/1.73 sqM) Est GFR (MDRD) Non-Af 57 (>60 ml/min/1.73 sqM) Glucose 223 H (74-99) mg/dL Plasma Lactic Acid Sean (0.7-2.0) mmol/L Calcium 10.2 (8.4-10.2) mg/dL Magnesium (1.6-2.3) mg/dL Total Bilirubin 0.6 (0.2-1.3) mg/dL AST 27 (17-59) U/L ALT 26 (21-72) U/L Alkaline Phosphatase 70 (38-126) U/L Total Protein 7.0 (6.3-8.2) g/dL Albumin 4.1 (3.5-5.0) g/dL Amylase 504 H* (30-110) U/L Lipase 3421 H (23-300) U/L Gastric Occult Blood Positive (Negative) 03/20/17 03/20/17 Range/Units 08:45 09:27 WBC (3.8-10.6) k/uL RBC (4.30-5.90) m/uL Hgb (13.0-17.5) gm/dL Hct (39.0-53.0) % MCV (80.0-100.0) fL MCH (25.0-35.0) pg MCHC (31.0-37.0) g/dL RDW (11.5-15.5) % Plt Count (150-450) k/uL Neutrophils % % Lymphocytes % % Monocytes % % Eosinophils % % Basophils % % Neutrophils # (1.3-7.7) k/uL Lymphocytes # (1.0-4.8) k/uL Monocytes # (0-1.0) k/uL Eosinophils # (0-0.7) k/uL Basophils # (0-0.2) k/uL Sodium (137-145) mmol/L Potassium (3.5-5.1) mmol/L Chloride (98-107) mmol/L Carbon Dioxide (22-30) mmol/L Anion Gap mmol/L BUN (9-20) mg/dL Creatinine (0.66-1.25) mg/dL Est GFR (MDRD) Af Amer (>60 ml/min/1.73 sqM) Est GFR (MDRD) Non-Af (>60 ml/min/1.73 sqM) Glucose (74-99) mg/dL Plasma Lactic Acid Sean 4.8 H* (0.7-2.0) mmol/L Calcium (8.4-10.2) mg/dL Magnesium 1.9 (1.6-2.3) mg/dL Total Bilirubin (0.2-1.3) mg/dL AST (17-59) U/L ALT (21-72) U/L Alkaline Phosphatase (38-126) U/L Total Protein (6.3-8.2) g/dL Albumin (3.5-5.0) g/dL Amylase (30-110) U/L Lipase (23-300) U/L Gastric Occult Blood (Negative) Disposition Decision Date: 03/20/17 <Halie Dorsey - Last Filed: 03/20/17 10:24> <Sriram Yusuf - Last Filed: 03/20/17 11:32> Clinical Impression: Pancreatitis Disposition: ADMITTED IP TO THIS [facility] Condition: Stable
[2017-03-20] MEDS ORDERED: RX INFO: IV CONTRAST WAS GIVEN 1 EACH MISC MISCELLANE PRN (08:42)
[2017-03-20 09:15] LABS: Basophils # (A) 0.1 k/uL (0-0.2); Basophils % (A) 0 %; CH 31.5; CHCM 34.3; Eosinophils # (A) 0.1 k/uL (0-0.7); Eosinophils % (A) 0 %; HDW 2.32; Luc # (Auto) 0.11; Luc % (Auto) 1; Lymphocytes # (A) 1.9 k/uL (1.0-4.8); Lymphocytes % (A) 10 %; MCH 31.5 pg (25.0-35.0); MCHC 34.1 g/dL (31.0-37.0); MCV 92.3 fL (80.0-100.0); Mean Platelet Volume 6.4; Monocytes # (A) 0.6 k/uL (0-1.0); Monocytes % (A) 3 %; Neutrophils # (A) 16.1 k/uL (1.3-7.7); Neutrophils % (A) 86 %; RBC 4.33 m/uL (4.30-5.90); RDW 12.6 % (11.5-15.5); WBC 18.8 k/uL (3.8-10.6); WBC (Perox) 19.48
[2017-03-20 09:18] LABS: HGB 13.6 gm/dL (13.0-17.5)
[2017-03-20 09:25] LABS: ALT 26 U/L (21-72); AST 27 U/L (17-59); Alkaline Phosphatase 70 U/L (38-126); Anion Gap 17 mmol/L; Blood Urea Nitrogen 29 mg/dL (9-20); Calcium 10.2 mg/dL (8.4-10.2); Carbon Dioxide 26 mmol/L (22-30); Chloride 98 mmol/L (98-107); Glucose 223 mg/dL (74-99); Non-African American GFR(MDRD) 57 (>60 ml/min/1.73 sqM); Potassium 3.5 mmol/L (3.5-5.1); Sodium 141 mmol/L (137-145); Total Bilirubin 0.6 mg/dL (0.2-1.3)
[2017-03-20 09:40] LABS: Amylase 504 U/L (30-110)
[2017-03-20] MEDS ORDERED: NALOXONE 0.4 MG/ML 1 ML VIAL IV PRN (10:24)
--- NOTE | 2017-03-20 10:40 | CT ---
EXAMINATION TYPE: CT abdomen pelvis w con DATE OF EXAM: 03/20/2017 10:27 AM REFERENCE: Previous study dated 01/24/2017. HISTORY: Pain HISTORY: Patient vomiting up blood REFERENCE: NONE CT DLP: 1060.7 mGy Automated exposure control for dose reduction was used. TECHNIQUE: Helical acquisition through the abdomen and pelvis was obtained following the oral ingesti on of without Oral Contrast and following intravenous administration of 80 mL of Visipaque 320. The d nick was reformatted in axial, coronal and sagittal projections. FINDINGS: Visualized portions of the lungs are clear. There is no pleural or pericardial fluid. There is thickening of the distal esophagus. There is been previous epigastric surgery. There continues to be pneumobilia. There is a stable, minimally ring-enhancing 2.8 cm mass in the med ial segment of the left lobe of the liver. No other definite hepatic lesions are seen. The gallbladde r is been removed. The spleen is unremarkable. Both adrenal glands are normal. The pancreas is unremarkable. There is no cyst significant retroperitoneal, iliac or inguinal adenopathy. The prostate gland is enlarged. The bladder is unremarkable. There is extensive diverticular change within the sigmoid colon with scattered diverticula throughout the left side of the colon and occasional diverticulum in the right side of the colon. The appendix is not visualized. There is mild distention of the duodenum and proximal jejunum there is no definite bowel wall thicken ing. No free fluid and no free air is seen. There has been previous vascular fixation of the L5-S1 level. There is severe degenerative change at L2-3 and L3-4. There is irregularity of the endplates at these 2 levels. There are degenerative lennon es in the hips. IMPRESSION: 1. STABLE PNEUMOBILIA AND CENTRAL HEPATIC MASS. 2. MILD PROMINENCE OF THE PROXIMAL SMALL BOWEL WITHOUT DEFINITE EVIDENCE OF OBSTRUCTION. 3. EXTENSIVE DIVERTICULOSIS OF THE COLON. 4. POSTSURGICAL AND DEGENERATIVE CHANGES WITHIN THE HIPS AND SPINE.
[2017-03-20] MEDS: SODIUM CHLORIDE 0.9% 1,000 ML IV SCH ×2 (11:27→17:41)
[2017-03-20] MEDS: HYDROmorphone 1 MG/ML 1 ML SYRINGE IV PRN ×4 (11:37→21:00)
[2017-03-20] MEDS: ONDANSETRON 4 MG/2 ML VIAL IVP PRN ×2 (13:46→17:26)
[2017-03-20] MEDS ORDERED: METOCLOPRAMIDE 5 MG/ML 2 ML VIAL IVP STA (14:23)
[2017-03-20] MEDS ORDERED: MORPHINE SULFATE 10 MG/ML SYRINGE IVP STA (14:35)
[2017-03-20 17:28] LABS: Glucose,Whole Blood 141 mg/dL (75-99)
--- NOTE | 2017-03-20 17:52 | P.CONS ---
History of Present Illness - Reason for Consult Consult date: 03/20/17 Metastatic carcinoid. - History of Present Illness The patient is a 77-year-old gentleman, well-known to our service. He was diagnosed with the carcinoid tumor involving the left lobe of the liver, in 2010. This was felt to be metastases take. For the patient the primary could not be localized. He did have a chemoembolization at the time at [facility]. He has since been treated, under the care of Dr. Lamb, locally with Sandostatin injections. He also follows up periodically at [facility]. Per the patient, he has been doing quite well on Sandostatin. Injection was stopped in October 2016. At this time I did not have access to the office records. According to the patient he felt this was done as he may not need it at this time. He was placed on cholestyramine. Since the fall, the patient has been complaining of abdominal pain which is more prominent in the epigastrium and upper abdomen, with the radiation somewhat diffusely throughout. This has been associated with some decrease in appetite, as well as intermittent nausea. He had an EGD in 10/[address] Guardado which is negative other than some chronic gastritis. The patient does have a history of perforated gastric ulcer and pyloroplasty in his 20s. At that time, it was felt that his symptoms could be due to his previous surgery , and gastroparesis. Symptoms have continued, and the patient was admitted in 01/23 because of recurrent abdominal pain with nausea and vomiting. At that time there was some concern for diverticulitis. CT scans did not show significant diverticulosis, but not obvious inflammation related to these. He did improve with supportive treatment and was discharged. He had a colonoscopy on 03/19/17, which was also negative. The patient was admitted with the exacerbation of his pain, that had the wasn 't significantly over the last 2-3 days. It was again associated with nausea and vomiting as well as decreased appetite. Apparently the patient was throwing up dark brown to black liquid material. He therefore came into the emergency room, and was admitted further management. CT scans done during this admission were compared to the previous ones from 01/23, showing a stable 2.8 cm in the left lobe of the liver, which represents his known carcinoid. Consult was placed for further evaluation and recommendations Review of Systems Constitutional: Reports poor appetite, Reports weight loss Eyes: denies blurred vision, denies pain Ears: deny: decreased hearing, ear discharge, earache, tinnitus Ears, nose, mouth and throat: Denies headache, Denies sore throat Cardiovascular: Denies chest pain, Denies shortness of breath Respiratory: Denies cough Gastrointestinal: Reports as per HPI, Reports abdominal pain, Reports coffee ground emesis, Reports diarrhea, Reports nausea, Reports vomiting Genitourinary: Reports as per HPI (Episode of urinary retention, in 01/23. Known BPH), Reports urinary hesitancy Musculoskeletal: Denies myalgias Integumentary: Denies pruritus, Denies rash Neurological: Denies numbness, Denies weakness Psychiatric: Denies anxiety, Denies depression Endocrine: Reports weight change Hematologic/Lymphatic: Reports as per HPI Past Medical History Past Medical History: Cancer, Diabetes Mellitus, GERD/Reflux, Prostate Disorder , Syncope Additional Past Medical History / Comment(s): Neuroendocrine tumor-liver cancer stage IV. NIDDM TYPE II. PAST PERFORATED STOMACH ULCER AT AGE 28 YRS WITH SX. GASTROPARESIS. DUODENAL BLEED. ANEMIA. SINUS DRAINAGE. BACK PROBLEMS WITH NUMBNESS AND TINGLING FROM WAIST DOWN LEGS. GREAT TOENAIL FUNGUS BILATERALLY, TINNITUS BILATERALLY, DIVERTICULITIS. HEMORRHOIDS. CHRONIC DIARRHEA. BPH. MVP. PAST HTN AND HIGH CHOLESTEROL BUT NO RX AFTER WT LOSS. BORN WITH SMALLPOX. History of Any Multi-Drug Resistant Organisms: None Reported Past Surgical History: Adenoidectomy, Back Surgery, Cholecystectomy, Orthopedic Surgery, Tonsillectomy Additional Past Surgical History / Comment(s): 03/19/17 COLONOSCOPY. PREVIOUS COLONOSCOPIES/EGDS. BACK SURGERY WITH CAGE L-4 & L-5, KIMBERLY GREAT TOES JOINT REMOVED, PERFORATED ULCER WITH VAGOTOMY AT 28 YRS OLD WITH MICHAEL . SINUS SURGERY. PORTAL VEIN CHEMO EMBOLIZATION. KIMBERLY CARPAL TUNNEL, KIMBERLY MIDDLE FINGER TRIGGER FINGER, KIMBERLY CATARACT. VASECTOMY. Past Anesthesia/Blood Transfusion Reactions: No Reported Reaction Past Psychological History: No Psychological Hx Reported Additional Psychological History / Comment(s): Pt resides alone. He is independent. Smoking Status: Never smoker Past Alcohol Use History: None Reported Past Drug Use History: None Reported - Past Family History Father Family Medical History: Cancer Additional Family Medical History / Comment(s): PROSTATE Sister(s) Family Medical History: Cancer Additional Family Medical History / Comment(s): LUNG CA AND IS LIVING. Mother Family Medical History: Diabetes Mellitus Additional Family Medical History / Comment(s): PACEMAKER. Medications and Allergies Home Medications Medication Instructions Recorded Confirmed Type Tamsulosin [Flomax] 0.4 mg PO DAILY 09/30/16 03/20/17 History metFORMIN HCL [Glucophage] 850 mg PO BID 09/30/16 03/20/17 History Multivitamin [Men's Multi-Vitamin] 1 tab PO DAILY 10/13/16 03/20/17 History Aspirin EC [Ecotrin Low Dose] 81 mg PO DAILY 01/22/17 03/20/17 History Finasteride [Proscar] 5 mg PO DAILY 01/22/17 03/20/17 History Cholestyramine (with Sugar) 4 gm PO BID 01/24/17 03/20/17 History [Questran Packet] fentaNYL 12MCG/HR PATCH [Duragesic 1 patch TRANSDERM Q72H 03/17/17 03/20/17 History 12MCG/HR] Allergies Allergy/AdvReac Type Severity Reaction Status Date / Time adhesive Allergy Unknown Rash/Hives Verified 03/20/17 09:23 propoxyphene napsylate AdvReac Unknown Vertigo Verified 03/20/17 09:23 [From [facility]-N 100] Physical Exam Vitals: Vital Signs Temp Pulse Resp BP Pulse Ox 03/20/17 16:37 98.8 F 103 H 18 150/77 96 03/20/17 15:13 105 H 18 157/89 96 03/20/17 13:49 98.4 F 115 H 20 144/79 99 03/20/17 12:21 106 H 20 128/74 97 03/20/17 11:20 98.3 F 102 H 155/89 96 - Constitutional General appearance: no acute distress - EENT Eyes: EOMI, PERRLA ENT: hearing grossly normal, normal oropharynx - Neck Neck: no lymphadenopathy Thyroid: bilateral: normal size - Respiratory Respiratory: bilateral: CTA - Cardiovascular Rhythm: regular Heart sounds: normal: S1, S2 - Gastrointestinal General gastrointestinal: normal bowel sounds, soft Localized gastrointestinal: tender: epigastric periumbilical - Integumentary Integumentary: normal - Neurologic Neurologic: CNII-XII intact - Musculoskeletal Musculoskeletal: strength equal bilaterally - Psychiatric Psychiatric: A&O x's 3, appropriate affect Results CBC & Chem 7: 03/20/17 08:45 03/20/17 08:45 Labs: Abnormal Lab Results - Last 24 Hours (Table) 03/20/17 03/20/17 Range/Units 14:11 17:21 POC Glucose (mg/dL) 141 H (75-99) mg/dL Plasma Lactic Acid Sean 2.3 H* (0.7-2.0) mmol/L Abdominal x-ray: report reviewed CT scan - abdomen: report reviewed CT scan - pelvis: report reviewed Assessment and Plan (1) Pancreatitis Narrative/Plan: The patient has been having abdominal pain now for about 7 months, with endoscopies as well as CT scans being overall unrevealing as noted. During this admission, elevation in pancreatic enzymes as noted, which was not present before. We'll defer to the admitting service for management. GI has been appropriately consulted. We will await the recommendations. In general, pancreatitis is NOT an expected complication related to carcinoid syndrome. Status: Acute (2) Neuroendocrine cancer Narrative/Plan: The patient's only known site of disease was in the left lobe of the liver. Review of imaging studies, over the last few months shows no evidence of progression. The patient states that his diarrhea, which has been the main manifestation of carcinoid syndrome, has been controlled with cholestyramine after stopping the Sandostatin. He is supposed to have an octreotide scan scheduled as an outpatient in the near future. As noted above, the patient stated that the Sandostatin was stopped as it was felt that he may not need it. I do not have confirmation of that as I could not access his office records from the hospital. These will be reviewed, to confirm that this was indeed the case, versus the Sandostatin not felt to be effective. Status: Chronic
[2017-03-20] MEDS: FINASTERIDE 5 MG TAB PO SCH ×2 (18:05→19:18)
[2017-03-20] MEDS: TAMSULOSIN 0.4 MG CAP.ER.24H PO SCH ×2 (18:05→19:18)
[2017-03-20] MEDS: ENOXAPARIN 40 MG/0.4 ML SYRINGE SQ SCH (19:18)
[2017-03-20 20:24] LABS: Glucose,Whole Blood 136 mg/dL (75-99)
[2017-03-20] MEDS: CHOLESTYRAMINE (WITH SUGAR) 4 GM PACKET PO SCH (20:34)
--- NOTE | 2017-03-20 21:30 | HP ---
DATE OF ADMISSION: 03/20/2017 PRESENTING COMPLAINT: Abdominal pain. HISTORY OF PRESENTING COMPLAINT: This is a pleasant 77-year-old patient who follows with Dr. Villarreal. Patient has an extensive medical history. Chronic stable medical conditions include diverticulitis, gastroparesis, BPH, GERD, tinnitus. The patient has an neuroendocrine tumor of the liver, stage IV, being followed by Dr. Villarreal. Patient recently had a bout of diverticulitis. Yesterday he had a colonoscopy by Dr. Edwards. Patient at baseline does get episodes of severe abdominal pain. Yesterday he also nausea and vomiting after he had the procedure done. He came in. Patient was found with acute pancreatitis and admitted for the same. He is still having some abdominal pain. Patient's is at the bedside. Patient has lost about 40 pounds of weight. REVIEW OF SYSTEMS: CONSTITUTIONAL: Tired. HEENT: None. RESPIRATORY: None. CARDIOVASCULAR: None. GASTROINTESTINAL: As above. GENITOURINARY: None. MUSCULOSKELETAL: None. DERMATOLOGICAL: None. HEMATOLOGICAL: None. LYMPHATICS: None. PSYCHIATRY: NEUROLOGICAL: None. Additionally, patient ( ) hard of hearing. PAST MEDICAL HISTORY: 1. Diverticulitis. 2. Diabetes mellitus, type 2. 3. Neuroendocrine tumor of the liver, stage IV. 4. Gastroparesis. 5. BPH. 6. GERD. 7. Tinnitus. 8. BPH. 9. Hyperlipidemia. 10. Hypertension which improved with weight loss. 11. Perforated stomach at the age of 28. 12. Duodenal bleed. 13. Back problems with numbness and tingling from the waist down to the legs. 14. Toenail fungus. PAST SURGICAL HISTORY: 1. Adenoidectomy. 2. Back surgery. 3. Cholecystectomy. 4. Orthopedic surgery. 5. Back surgery with cage L4-5, L5-S1. 6. Perforated peptic ulcer with vagotomy in a 28-year-old with sharmin. 7. Portal vein chemoembolization. 8. Bilateral carpal tunnel. 9. Bilateral middle finger trigger finger. 10. Bilateral cataract. 11. Vasectomy. SOCIAL HISTORY: Lives by himself. No smoking. No alcohol. FAMILY HISTORY: Prostate cancer. HOME MEDICATIONS: 1. Metformin 850 mg p.o. b.i.d. 2. Fentanyl 12 mcg patch q.72 hours. 3. Flomax 0.4 mg p.o. daily. 4. Men's Multivitamin 1 tablet p.o. daily. 5. Proscar 5 mg p.o. daily. 6. Questran 4 grams p.o. b.i.d. 7. Aspirin 81 mg p.o. daily. ALLERGIES: 1. ADHESIVE. 2. DARVOCET-N 100. On examination, temperature 98.3, pulse 116, respiration 26, blood pressure 159/92, pulse ox 100% on room air. GENERAL APPEARANCE: Average build. Lying in bed. Tired-appearing. EYES: Pupils equal. Conjunctivae normal. HEENT: Oral cavity with dry mucous membrane. Decreased hearing. NECK: JVD not raised. Mass not palpable. RESPIRATORY: Effort normal. LUNGS: Fair air entry. CARDIOVASCULAR: First and second sounds normal. No edema. ABDOMEN: Epigastric tenderness. No guarding or rigidity. Liver and spleen not palpable. LYMPHATIC: No lymph node palpable in neck or axillae. PSYCHIATRY: Alert and oriented x3. Mood and affect normal. NEUROLOGICAL: Pupils equal. Cranial nerves grossly intact. Power and sensation grossly intact. INVESTIGATIONS: White count 18.8, hemoglobin 13.6, potassium 3.5. Glucose 223. Amylase 504, lipase 3421. ASSESSMENT: 1. Acute pancreatitis. 2. Colonic diverticulosis. 3. Diabetes mellitus, type 2, on oral hypoglycemic. 4. Neuroendocrine tumor, stage IV, on the liver. 5. Gastroparesis secondary to diabetes. 6. Benign prostatic hypertrophy. 7. Chronic gastroesophageal reflux disease. 8. Chronic abdominal pain from above. PLAN: Patient is being put on IV fluids. Home medications will be resumed. Patient will be made n.p.o. except for some ice chips. Dr. Edwards was consulted. Will also do a courtesy consult to Dr. Villarreal's team. Care was discussed in detail with the patient and his . Will repeat labs in the morning.
[2017-03-21] MEDS: HYDROmorphone 1 MG/ML 1 ML SYRINGE IV PRN ×5 (01:05→12:58)
[2017-03-21] MEDS: ONDANSETRON 4 MG/2 ML VIAL IVP PRN ×2 (03:53→11:02)
[2017-03-21] MEDS: SODIUM CHLORIDE 0.9% 1,000 ML IV SCH ×2 (06:15→19:55)
[2017-03-21 07:11] LABS: Glucose,Whole Blood 114 mg/dL (75-99)
[2017-03-21 07:36] LABS: Amylase 117 U/L (30-110)
[2017-03-21] MEDS: TAMSULOSIN 0.4 MG CAP.ER.24H PO SCH (08:58)
[2017-03-21] MEDS: ENOXAPARIN 40 MG/0.4 ML SYRINGE SQ SCH (08:59)
[2017-03-21] MEDS: FINASTERIDE 5 MG TAB PO SCH (08:59)
[2017-03-21] MEDS ORDERED: ASPIRIN 81 MG CHEW PO SCH (09:00)
[2017-03-21] MEDS: CHOLESTYRAMINE (WITH SUGAR) 4 GM PACKET PO SCH ×2 (09:00→19:55)
[2017-03-21 09:58] VITALS: BMI 24.4
[2017-03-21] MEDS ORDERED: HYDROmorphone 1 MG/ML 1 ML SYRINGE IVP STA (10:51)
[2017-03-21 12:15] LABS: Glucose,Whole Blood 165 mg/dL (75-99)
[2017-03-21] MEDS ORDERED: ONDANSETRON 4 MG/2 ML VIAL IVP PRN (13:08)
[2017-03-21 14:49] LABS: Basophils # (A) 0.1 k/uL (0-0.2); Basophils % (A) 0 %; CHCM 32.4; Eosinophils # (A) 0.1 k/uL (0-0.7); Eosinophils % (A) 0 %; HCT 29.2 % (39.0-53.0); HDW 2.24; Luc # (Auto) 0.18; Luc % (Auto) 1; Lymphocytes # (A) 1.4 k/uL (1.0-4.8); Lymphocytes % (A) 6 %; MCH 30.5 pg (25.0-35.0); MCHC 31.8 g/dL (31.0-37.0); MCV 96.1 fL (80.0-100.0); Mean Platelet Volume 6.3; Monocytes # (A) 1.2 k/uL (0-1.0); Monocytes % (A) 5 %; Neutrophils # (A) 22.3 k/uL (1.3-7.7); Neutrophils % (A) 88 %; RBC 3.04 m/uL (4.30-5.90); RDW 12.8 % (11.5-15.5); WBC (Perox) 26.09
[2017-03-21] MEDS: MORPHINE SULFATE 4 MG/ML SYRINGE IVP PRN ×2 (14:55→19:03)
[2017-03-21 14:56] LABS: WBC 25.2 k/uL (3.8-10.6)
[2017-03-21 14:57] LABS: HGB 9.3 gm/dL (13.0-17.5)
[2017-03-21] MEDS ORDERED: METOCLOPRAMIDE 5 MG/ML 2 ML VIAL ONE (15:09)
[2017-03-21 15:13] LABS: Manual Review Performed
[2017-03-21] MEDS: METOCLOPRAMIDE 5 MG/ML 2 ML VIAL IVP SCH (15:14)
[2017-03-21 15:25] LABS: Amylase 1643 U/L (30-110)
--- NOTE | 2017-03-21 15:51 | XR ---
EXAMINATION TYPE: XR abdomen complete w decub DATE OF EXAM: 03/21/2017 3:46 PM COMPARISON: 01/25/2017 HISTORY: Abdominal pain TECHNIQUE: Supine, upright, and left side down lateral decubitus views of the abdomen are obtained. FINDINGS: There is no sign of intestinal obstruction or pneumoperitoneum. Fecal pattern is normal. There is no sign of a mass. There are numerous phlebolith in the pelvis. There are spondylotic changes in the lum bar spine. Lung bases are clear. There are clips at the gastroesophageal junction. IMPRESSION: Nonacute abdomen. No significant change.
[2017-03-21 16:45] LABS: Glucose,Whole Blood 219 mg/dL (75-99)
--- NOTE | 2017-03-21 17:57 | CONS ---
DATE OF CONSULTATION: 03/21/2017 REQUESTING PHYSICIAN: Dr. Villarreal REASON FOR CONSULTATION: Acute pancreatitis. HISTORY OF PRESENT ILLNESS: The patient is a 77-year-old pleasant white male with history of metastatic neuroendocrine tumor diagnosed in 2010 and has been stable, was admitted to the hospital with acute onset of abdominal pain, nausea, vomiting for the last 2 days' duration. The patient underwent an outpatient colonoscopy by Dr. Edwards 2 days ago and even before the procedure he had a couple of episodes at home. He went home that night and through the night he started having more epigastric discomfort and multiple episodes of nausea, vomiting that later turned into coffee ground emesis. The pain progressively got worse came into the emergency room and was noted to have elevated amylase and lipase consistent with pancreatitis and the patient subsequently admitted to the hospital for further evaluation. He never had pancreatitis in the past. He denies any new medications that had been started recently. The patient was being treated with Sandostatin Depo shots for the metastatic neuroendocrine tumor but since the patient has been doing so that was discontinued in October 2016. Recently he was started on cholestyramine one packet 4 times daily to control the diarrhea and he has been doing reasonably well. This morning the patient states that he is feeling better, but he still has some epigastric pain and nausea but no further episodes of emesis. No fever, chills, night sweats. Never had pancreatitis in the past and no history of alcohol use. PAST MEDICAL HISTORY: Significant for GERD, history of diabetes mellitus, metastatic neuroendocrine tumor diagnosed in 2010. PAST SURGICAL HISTORY: Adenoidectomy, back surgery, cholecystectomy, tonsillectomy, back surgery, sinus surgery, exploratory laparotomy for perforated ulcer with vagotomy and pyloroplasty, middle finger repair, bilateral cataract surgery. Medications at home include Flomax, Glucophage, multivitamin, Ecotrin Proscar, cholestyramine, fentanyl. ALLERGIES: DARVOCET. FAMILY HISTORY: Sister had lung cancer. Mother had diabetes mellitus and father had prostate cancer. SOCIAL HISTORY: No smoking or alcohol use. REVIEW OF SYSTEMS: CARDIOPULMONARY: No chest pain or shortness of breath. GENITOURINARY: No dysuria or hematuria. MUSCULOSKELETAL: Unremarkable. SKIN: Unremarkable. ENDOCRINE: Unremarkable. PSYCHIATRIC: Unremarkable. NEUROLOGY: Unremarkable. ENT/VISION: Unremarkable. ONCOLOGY: History of metastatic neuroendocrine tumor as described above diagnosed in 2010. CONSTITUTIONAL: No recent weight loss. No fever, chills, night sweats. On physical examination, he appears comfortable in no apparent distress. Vitals as are stable. Blood pressure is 139/84, pulse 105, temperature 98.1. HEENT: Unremarkable. Conjunctivae pink. Sclerae anicteric. Oral cavity, no lesions. NECK: No JVD or lymph node enlargement. Chest was clear to auscultation. HEART: Regular rate and rhythm. ABDOMEN: Soft. Bowel sounds are positive. Mild tenderness in the epigastric area. EXTREMITIES: No pedal edema. SKIN: No rashes. NEURO: He is alert and oriented x3. No focal deficits. Labs from today: WBC is 18.8, hemoglobin 10.6. Platelets are normal. Yesterday amylase was 504. Lipase was 3421. Today amylase is 117 and lipase is 277. He did have a CT of the abdomen and pelvis done when he came into the emergency room that showed stable lesion in the liver, stable pneumobilia, extensive diverticulosis and normal-appearing pancreas. IMPRESSION: 1. Acute pancreatitis, etiology unclear. Patient noted to have elevated amylase and lipase when he presented with epigastric pain, nausea, vomiting, which are gradually improving. Other than cholestyramine he is not on any new medications that were started recently. No history of alcohol use. He has remote history of gallbladder surgery and presently, his serum transaminases are normal which makes it unlikely we are dealing with biliary episode of pancreatitis. In any event pancreatitis is gradually improving as seen by improving amylase and lipase. 2. History of metastatic neuroendocrine tumor diagnosed in 2010, very stable. 3. Chronic diarrhea on cholestyramine which is presently on hold. RECOMMENDATIONS: 1. Will start him on a clear liquid diet. 2. Continue with pain medications and antiemetics as needed. 3. Repeat labs in the morning and if they are improving, we can advance diet as tolerated. 4. We will follow the patient closely during his hospital stay. Thank you for this consultation.
[2017-03-21 20:01] LABS: Glucose,Whole Blood 205 mg/dL (75-99)
[2017-03-21] MEDS ORDERED: RX INFO: IV CONTRAST WAS GIVEN 1 EACH MISC MISCELLANE PRN (20:20)
[2017-03-21] MEDS ORDERED: ONDANSETRON 4 MG/2 ML VIAL ONE (21:30)
[2017-03-21] MEDS ORDERED: MORPHINE SULFATE 4 MG/ML SYRINGE ONE (21:30)
[2017-03-21 23:33] LABS: Blood Urea Nitrogen 48 mg/dL (9-20); Non-African American GFR(MDRD) 51 (>60 ml/min/1.73 sqM)
[2017-03-22] MEDS ORDERED: PANTOPRAZOLE 40 MG/10 ML VIAL ONE (00:02)
[2017-03-22 00:17] VITALS: TEMP 97.8
[2017-03-22] MEDS ORDERED: PROPOFOL 50 ML IV ONE (01:43)
[2017-03-22 02:10] LABS: Glucose,Whole Blood 193 mg/dL (75-99)
--- NOTE | 2017-03-22 02:13 | ED ---
Medical Decision Making - Medical Decision Making Called for CODE BLUE in computed tomography scan. Patient has been reportedly vomiting coffee-ground emesis prior to computed tomography scan. Patient was found unresponsive with coffee-ground emesis filling the mouth as well as on the bed. Patient had no pulse. CPR initiated. ACLS protocol followed. Patient had his mouth suctioned and intubated without complication. Patient did have return of circulation. Patient did lose his pulses second time with again return of circulation. - Lab Data Result diagrams: 03/21/17 14:34 03/21/17 14:30 Lab Results 03/20/17 03/20/17 03/20/17 Range/Units 08:45 08:45 08:45 WBC 18.8 H (3.8-10.6) k/uL RBC 4.33 (4.30-5.90) m/uL Hgb 13.6 D (13.0-17.5) gm/dL Hct 40.0 (39.0-53.0) % MCV 92.3 (80.0-100.0) fL MCH 31.5 (25.0-35.0) pg MCHC 34.1 (31.0-37.0) g/dL RDW 12.6 (11.5-15.5) % Plt Count 398 (150-450) k/uL Neutrophils % 86 % Lymphocytes % 10 % Monocytes % 3 % Eosinophils % 0 % Basophils % 0 % Neutrophils # 16.1 H (1.3-7.7) k/uL Lymphocytes # 1.9 (1.0-4.8) k/uL Monocytes # 0.6 (0-1.0) k/uL Eosinophils # 0.1 (0-0.7) k/uL Basophils # 0.1 (0-0.2) k/uL Sodium 141 (137-145) mmol/L Potassium 3.5 (3.5-5.1) mmol/L Chloride 98 (98-107) mmol/L Carbon Dioxide 26 (22-30) mmol/L Anion Gap 17 mmol/L BUN 29 H (9-20) mg/dL Creatinine 1.23 (0.66-1.25) mg/dL Est GFR (MDRD) Af Amer >60 (>60 ml/min/1.73 sqM) Est GFR (MDRD) Non-Af 57 (>60 ml/min/1.73 sqM) Glucose 223 H (74-99) mg/dL Plasma Lactic Acid Sean (0.7-2.0) mmol/L Calcium 10.2 (8.4-10.2) mg/dL Magnesium (1.6-2.3) mg/dL Total Bilirubin 0.6 (0.2-1.3) mg/dL AST 27 (17-59) U/L ALT 26 (21-72) U/L Alkaline Phosphatase 70 (38-126) U/L Total Protein 7.0 (6.3-8.2) g/dL Albumin 4.1 (3.5-5.0) g/dL Amylase 504 H* (30-110) U/L Lipase 3421 H (23-300) U/L Gastric Occult Blood Positive (Negative) 03/20/17 03/20/17 Range/Units 08:45 09:27 WBC (3.8-10.6) k/uL RBC (4.30-5.90) m/uL Hgb (13.0-17.5) gm/dL Hct (39.0-53.0) % MCV (80.0-100.0) fL MCH (25.0-35.0) pg MCHC (31.0-37.0) g/dL RDW (11.5-15.5) % Plt Count (150-450) k/uL Neutrophils % % Lymphocytes % % Monocytes % % Eosinophils % % Basophils % % Neutrophils # (1.3-7.7) k/uL Lymphocytes # (1.0-4.8) k/uL Monocytes # (0-1.0) k/uL Eosinophils # (0-0.7) k/uL Basophils # (0-0.2) k/uL Sodium (137-145) mmol/L Potassium (3.5-5.1) mmol/L Chloride (98-107) mmol/L Carbon Dioxide (22-30) mmol/L Anion Gap mmol/L BUN (9-20) mg/dL Creatinine (0.66-1.25) mg/dL Est GFR (MDRD) Af Amer (>60 ml/min/1.73 sqM) Est GFR (MDRD) Non-Af (>60 ml/min/1.73 sqM) Glucose (74-99) mg/dL Plasma Lactic Acid Sean 4.8 H* (0.7-2.0) mmol/L Calcium (8.4-10.2) mg/dL Magnesium 1.9 (1.6-2.3) mg/dL Total Bilirubin (0.2-1.3) mg/dL AST (17-59) U/L ALT (21-72) U/L Alkaline Phosphatase (38-126) U/L Total Protein (6.3-8.2) g/dL Albumin (3.5-5.0) g/dL Amylase (30-110) U/L Lipase (23-300) U/L Gastric Occult Blood (Negative) Disposition Clinical Impression: Pancreatitis, GI hemorrhage, Cardiac arrest Disposition: ADMITTED IP TO THIS [facility] Condition: Critical Procedures - Intubation Time Out Performed: Yes Laryngoscope: Mathew Size: 3 ET Tube Size: 7.5 Tube Secured Depth (cm): 21 Tube Secured Location: lips Tube Placement Confirmation: visualized tube passing through cords, equal breath sounds bilaterally Intubation Complications: none
--- NOTE | 2017-03-22 02:14 | CT ---
EXAM: CT Chest Without and With Intravenous Contrast CLINICAL HISTORY: Reason: severe abdominal pain, vomiting, respiratory arrest TECHNIQUE: Axial computed tomography images of the chest without and with intravenous contrast. CTDI is 12 mGy and DLP is 882 mGy-cm This CT exam was performed using one or more of the following dose reduction techniques: automated exposure control, adjustment of the mA and/or kV according to patient size, and/or use of iterative reconstruction technique. Coronal and sagittal reformatted images were created and reviewed. COMPARISON: No relevant prior studies available. FINDINGS: Lungs: Hazy bilateral lung opacities worse in the right lung may be edema or pneumonitis. Mild bibasilar lung atelectasis/consolidation. Pleural space: Tiny bilateral pleural effusions. No pneumothorax. Heart: Unremarkable. No cardiomegaly. No significant pericardial effusion. Bones/joints: Right anterior rib 5, 6 fractures. Questionable ribs 8 and 9 fractures, limited by motion. Left anterior ribs 4, 5, 6 and possibly 7, 8 and 9 fractures. No dislocation. Soft tissues: Unremarkable. Vasculature: Unremarkable. No thoracic aortic aneurysm. Lymph nodes: Unremarkable. No enlarged lymph nodes. Tubes, lines and devices: NG tube tip is at the GE junction and may be advanced at least 12 cm. Endotracheal tube in good position. IMPRESSION: 1. NG tube tip is at the GE junction and may be advanced at least 12 cm. 2. Bilateral anterior acute rib fractures. 3. Bilateral hazy lung opacities, greater on the right and mild bibasilar lung atelectasis/consolidations. Query edema or pneumonitis. 4. Tiny pleural effusions. EXAM: CT Abdomen and Pelvis Without and With Intravenous Contrast CLINICAL HISTORY: Reason: severe abdominal pain, vomiting, respiratory arrest TECHNIQUE: Axial computed tomography images of the abdomen and pelvis without and with intravenous contrast. CTDI is 12 mGy and DLP is 887 mGy-cm This CT exam was performed using one or more of the following dose reduction techniques: automated exposure control, adjustment of the mA and/or kV according to patient size, and/or use of iterative reconstruction technique. Coronal and sagittal reformatted images were created and reviewed. COMPARISON: CT abdomen and pelvis 5/12/17 FINDINGS: Lower thorax: No acute findings. ABDOMEN: Liver: 2 cm central hepatic lesion with calcific rim, stable. Previously seen pneumobilia has resolved. Gallbladder and bile ducts: Cholecystectomy. No ductal dilation. Pancreas: Interval Inflammatory changes around the pancreas, worrisome for acute pancreatitis. Small free fluid and inflammatory changes of the upper abdomen and retroperitoneum. No formed fluid collection to suggest pseudocyst or abscess. Spleen: Unremarkable. No splenomegaly. Adrenals: Unremarkable. No mass. Kidneys and ureters: Unremarkable. No solid mass. No obstructing stones. No hydronephrosis. Stomach and bowel: Continued distended duodenum to the proximal third portion is now filled with increased hyperdense material. Possible intraluminal GI bleed, cannot exclude underlying neoplasm. Colonic diverticulosis. No acute diverticulitis. 2 cm lipoma with left mid jejunal bowel loop without obstruction. Appendix: No findings to suggest acute appendicitis. PELVIS: Bladder: Unremarkable. No mass. No stones. Reproductive: Enlarged prostate. ABDOMEN and PELVIS: Intraperitoneal space: See above. Bones/joints: Degenerative changes of the lumbar spine predominantly L1-L4. L5-S1 disc spacer. No acute fracture. No dislocation. Soft tissues: Small bilateral fat-containing inguinal hernias. Vasculature: Unremarkable. No abdominal aortic aneurysm. Lymph nodes: Unremarkable. No enlarged lymph nodes. IMPRESSION: 1. Interval Inflammatory changes around the pancreas, worrisome for acute pancreatitis. Small free fluid and inflammatory changes of the upper abdomen and retroperitoneum. 2. Continued distended duodenum to the proximal third portion is now filled with increased hyperdense material. Possible intraluminal GI bleed, cannot exclude underlying neoplasm. Probable ileus, no definite sharp transition point to suggest obstruction. 3. Colonic diverticulosis. No acute diverticulitis. 3. Cholecystectomy. Stable central hepatic lesion. [employer] 03/22/17 02:19 Call Nurse CATRACHITA Feldman in ICU on 03/22 02:18 (-04:00)
[2017-03-22 02:15] LABS: CH 30.2; CHCM 30.3; HCT 23.2 % (39.0-53.0); HDW 2.26; Hypochromasia Moderate; MCH 31.3 pg (25.0-35.0); MCHC 31.2 g/dL (31.0-37.0); MCV 100.1 fL (80.0-100.0); RBC 2.32 m/uL (4.30-5.90); RDW 12.3 % (11.5-15.5); WBC 21.9 k/uL (3.8-10.6); WBC (Perox) 20.42
[2017-03-22 02:23] LABS: Appearance,Urine Cloudy (Clear); Bilirubin,Urine Negative (Negative); Glucose,Urine (UA) 1+ (Negative); Ketones,Urine Negative (Negative); Leukocyte Esterase,Urine Negative (Negative); Mucus,Urine Few /hpf; Nitrite,Urine Negative (Negative); PH, Urine 6.5 (5.0-8.0); Particle Count 29129; Protein,Urine 2+ (Negative); RBC,Urine 17 /hpf (0-5); Squamous Epithelial Cell,Urine 3 /hpf (0-4); UA Billing (MACRO vs. MICRO) MICRO; Urobilinogen,Urine <2.0 mg/dL (<2.0); WBC,Urine 44 /hpf (0-5)
[2017-03-22 02:25] LABS: INR 1.5 (<1.1); Partial Thromboplastin Time 26.8 sec (22.0-30.0); Prothrombin Time 14.3 sec (9.0-12.0)
[2017-03-22 02:30] LABS: HGB 7.3 gm/dL (13.0-17.5)
[2017-03-22] MEDS ORDERED: NALOXONE 0.4 MG/ML 1 ML VIAL IV PRN (02:31)
[2017-03-22 02:35] LABS: Calcium 6.6 mg/dL (8.4-10.2); Phosphorous 7.5 mg/dL (2.5-4.5); Potassium 3.3 mmol/L (3.5-5.1); Total Protein 3.5 g/dL (6.3-8.2)
[2017-03-22] MEDS ORDERED: PROPOFOL 500 MG in EMPTY BAG 1 BAG IV SCH (02:45)
[2017-03-22] MEDS ORDERED: NOREPINEPHRIN 4 MG-0.9% NS PMX 4 MG/250 ML ML IV SCH (02:45)
[2017-03-22] MEDS ORDERED: LORazepam 2 MG/ML SYRINGE IV PRN (03:18)
[2017-03-22 03:24] LABS: Add Differential Manual Differential
[2017-03-22 03:26] LABS: Manual Review Performed; Myelocytes % 1.5 %; Nucleated Red Blood Cells 0 /100 WBC (0-0); Total Cells Counted 200
[2017-03-22 03:27] LABS: Large Platelets Present
[2017-03-22] MEDS ORDERED: MORPHINE SULFATE (100 MG/2 ML) 100 MG in SODIUM CHLORIDE 0.9% 100 ML IV SCH (03:30)
[2017-03-22] MEDS: MORPHINE SULFATE 4 MG/ML SYRINGE IV PRN ×2 (03:39→05:53)
[2017-03-22] MEDS: METOCLOPRAMIDE 5 MG/ML 2 ML VIAL IVP SCH ×2 (03:50→08:38)
[2017-03-22 03:51] LABS: ABG Base Excess -13.4 mmol/L; ABG HCO3 13 mmol/L (21-25); ABG PCO2 38 mmHg (35-45); ABG PH 7.18 (7.35-7.45); ABG PO2 230 mmHg (83-108); ABG TCO2 15 mmol/L (19-24)
[2017-03-22] MEDS: SODIUM CHLORIDE 0.9% 1,000 ML IV SCH (05:48)
[2017-03-22 06:51] VITALS: BP 84/49; RESP 28
[2017-03-22] MEDS ORDERED: HEPARIN SODIUM,PORCINE 5,000 UNIT/ML 1 ML VIAL SQ SCH (08:00)
[2017-03-22 08:32] VITALS: PULSE 124
[2017-03-22] MEDS ORDERED: CHLORHEXIDINE GLUCONATE 15 ML CUP MUCOUS MEM SCH (09:00)
[2017-03-22] MEDS ORDERED: PANTOPRAZOLE 40 MG/10 ML VIAL IV SCH (09:00)
[2017-03-22] MEDS ORDERED: PANTOPRAZOLE 40 MG/10 ML VIAL IVP SCH (09:00)
--- NOTE | 2017-03-22 12:08 | PN ---
DATE OF SERVICE: 03/21/2017 PRESENTING COMPLAINT: Abdominal pain. INTERVAL HISTORY: This is a 77-year-old gentleman who is status post colonoscopy on 03/19/2017. Post procedure, patient had nausea and vomiting and this nausea and vomiting continued and abdominal pain continued and became worse in the morning. Patient was found with acute pancreatitis and admitted for the same. Today patient is awake, alert. GI just left the room. Patient is asking when we can start the clear liquid diet that GI has cleared him for. Review of systems review of systems done for constitutional, cardiovascular, GI, pulmonary with relevant findings as above. CURRENT MEDICATIONS: 1. Aspirin. 2. Questran. 3. Enoxaparin. 4. Fentanyl. 5. Morphine. 6. Naloxone. 7. Tamsulosin. PHYSICAL EXAMINATION: VITAL SIGNS: Temperature 97.9, pulse 90, respiratory rate 16, blood pressure 139/74, oxygen saturation 94% on room air. GENERAL APPEARANCE: Patient looks pale; however, sitting up, anxious to begin taking some clear liquids. Does still complain of some abdominal pain to the left upper quadrant. EYES: Pupils equal. Conjunctivae normal. NECK: JVD not raised. Mass not palpable. LUNGS: Clear to auscultation bilaterally, respiratory effort normal. Unlabored. CARDIOVASCULAR: First and second sounds normal. No edema noted. ABDOMEN: Soft, tender to palpation to the left upper quadrant, right lower quadrant, left lower quadrant. PSYCHIATRIC: Alert and oriented x3. Mood and affect are normal. INVESTIGATIONS: White blood cell count 25.2, hemoglobin 9.3, platelet count 385. Amylase 1643, lipase 15,974. ASSESSMENT: 1. Acute pancreatitis. 2. Colonic diverticulosis. 3. Diabetes mellitus type 2, on oral hypoglycemics. 4. Neuroendocrine tumor, stage IV, on the liver. 5. Gastroparesis secondary to diabetes. 6. Benign prosthetic hypertrophy. 7. Chronic gastroesophageal reflux disease. 8. Chronic abdominal pain from above. PLAN: Patient is being put on IV fluids and will remain n.p.o. except for a few ice chips. GI, Dr. Edwards was consulted and will follow the case as well. It came to my attention later in this day that the patient developed acute abdominal pain, nausea, vomiting with coffee ground-type emesis. GI was notified of this finding and has subsequently ordered patient is being taken for an x-ray of the abdomen. Will continue to follow. Labs in the morning. Patient was seen and examined by Nurse Practitioner Cece Hart and all elements of the case discussed with attending, Dr. Lamar. I performed a history and physical examination of this patient and discussed the same with the dictator. I agree with the dictator's note. Any additional findings/opinions, etc. will be noted.
--- NOTE | 2017-03-22 13:10 | PN ---
DATE OF SERVICE: 03/21/2017 ATTENDING NOTE: This patient was seen and examined by me. Patient presented with acute pancreatitis following colonoscopy and also underlying carcinoid syndrome. Patient again had a flare-up of abdominal pain. GI was informed. Patient otherwise has been n.p.o. On exam, lungs are clear. CARDIOVASCULAR: First and second sounds normal. ABDOMEN: Soft, nontender. INVESTIGATIONS: Amylase is 1643, lipase 1597.4. White count 25.2. ASSESSMENT: 1. Acute severe pancreatitis, worsening. 2. Chronic diverticulosis. PLAN: Patient remains strictly n.p.o. Follow with GI. Care was discussed with the patient. Follow.
--- NOTE | 2017-03-25 10:45 | CDI ---
In responding to this query, please exercise your independent professional judgment. The [facility] Coding Staff and Clinical Documentation Specialists appreciate your assistance in clarifying documentation, maintaining compliance with coding guidelines, accurately documenting patients condition and capturing severity of illness. The fact that a question is asked does not imply that any particular answer is desired or expected. Communication forms are a method of clarifying documentation and are not made part of the Legal Health Record. Thank you in advance for your clarification. Last Revision, January 2016 Radha Everett [address] [place] [address] Documentation Clarification Form Mortality Review Date: 03/25/2017 10:30:00 AM From: Chrsisy Ac RN, CCDS Admit Date: 03/20/2017 10:27:00 AM Patient Name: Raj Chávez Visit Number: [id number] Dr. Anuj Lamar History/Risk Factors: Neuroendocrine tumor of liver stage 4, gastroparesis, Duodenal bleed Clinical Indicators: 03/22 0229 Nursing Note: "during scan patient started vomiting dark brown liquids. 2l in total was vomited before patient became unresponsive. Code blue called and CPR initiated. See code sheet. 03/22 ER MD Code Note: "Called for CODE BLUE in computed tomography scan. Patient has been reportedly vomiting coffee-ground emesis prior to computed tomography scan. Patient was found unresponsive with coffee-ground emesis filling the mouth as well as on the bed. Patient had no pulse. CPR initiated. ACLS protocol followed. Patient had his mouth suctioned and intubated without complication. Patient did have return of circulation. Patient did lose his pulses second time with again return of circulation." Vital signs/Pulse oximetry: 03/22 0200 HR 124, RR 28, B/P 116/60, Spo2 99% on MV Lung/Breathing assessment: per nursing assessment 03/22 0000: "Clear and equal" in all lung teresa ABG/CBG: pH 7.18 pCO2 38 pO2 230 pHCO3 13 Lactate -13.4 on 100% FIO2 Treatment: Continuous Pulse ox: per ICU Protocol Vent: Intubated with mechanical ventilation AC 28, TV 400, FIO2 60%, PEEP 5 O2: per vent settings In your professional opinion, can you please clarify if these findings signify one of the following conditions? Acuity: o Acute o Acute on Chronic Respiratory Status: o Respiratory failure with hypercapnia o Respiratory failure with hypoxia o Acute Respiratory Distress o Other Diagnosis, please specify o Unable to determine Please document in your progress notes and discharge summary in order to capture severity of illness and risk of mortality. Include clinical findings that support your diagnosis. FYI: Press F11 to launch patient chart. Place X here if this finding has no clinical significance, is not applicable or if you are not able to provide any additional documentation. GHISLAINED
--- NOTE | 2017-03-25 10:56 | CDI ---
In responding to this query, please exercise your independent professional judgment. The [facility] Coding Staff and Clinical Documentation Specialists appreciate your assistance in clarifying documentation, maintaining compliance with coding guidelines, accurately documenting patients condition and capturing severity of illness. The fact that a question is asked does not imply that any particular answer is desired or expected. Communication forms are a method of clarifying documentation and are not made part of the Legal Health Record. Thank you in advance for your clarification. Last Revision, September [address] [place] [address] Documentation Clarification Form Mortality review Date: 03/25/2017 10:47:00 AM From: Chrissy Ac RN, CCDS Admit Date: 03/20/2017 10:27:00 AM Patient Name: Raj Chávez Visit Number: [id number] Dr. Anuj Lamar History Risk factors/Other underlying illness: acute pancreatitis, coffee ground emesis, gastroparesis Clinical Indicators: Patient became unresponsive, Code blue was called, pt was intubated, CPR performed Labs: Patient presents with a BUN 29/48/49 CR: 1.23/1.37/2.3 GFR: >60/34 01/24/17 Patients baseline BUN: //12/13 CR:1.24/1.08/1.12 GFR: >60 Tx: Levophed Drip titrate for B/P 03/20 on admission pt received 2L IVF In your professional opinion, in order to capture severity of illness; can you please clarify if the condition can be further specified? Acute Renal Failure with Acute Tubular Necrosis Acute Renal Failure with Renal Cortical Necrosis Acute Renal Failure with other specified pathological cause, please specify Acute Renal Failure with other cause, please specify Unable to determine Other, please specify Please document in your progress notes and discharge summary in order to capture severity of illness and risk of mortality. Include clinical findings that support your diagnosis. FYI: Press F11 to launch patient chart Place X here if this finding has no clinical significance, is not applicable or if you are not able to provide any additional documentation. GHISLAINED
--- NOTE | 2017-03-25 11:05 | CDI ---
In responding to this query, please exercise your independent professional judgment. The [facility] Coding Staff and Clinical Documentation Specialists appreciate your assistance in clarifying documentation, maintaining compliance with coding guidelines, accurately documenting patients condition and capturing severity of illness. The fact that a question is asked does not imply that any particular answer is desired or expected. Communication forms are a method of clarifying documentation and are not made part of the Legal Health Record. Thank you in advance for your clarification. Last Revision, January 2016 Radha Everett [address] [facility] [place] [address] Documentation Clarification Form Mortality review Date: 03/25/2017 10:56:00 AM From: Chrissy Ac RN, CCDS Admit Date: 03/20/2017 10:27:00 AM Patient Name: Raj Chávez Visit Number: [id number] Dr. Anuj Lamar Patient history/risk factors: Acute pancreatitis this admission with new onset coffee ground emesis prior to code Clinical Indicators: 03/22 EC MD Code Note: "Called for CODE BLUE in computed tomography scan. Patient has been reportedly vomiting coffee-ground emesis prior to computed tomography scan. Patient was found unresponsive with coffee-ground emesis filling the mouth as well as on the bed. Patient had no pulse. CPR initiated. ACLS protocol followed. Patient had his mouth suctioned and intubated without complication. Patient did have return of circulation. Patient did lose his pulses second time with again return of circulation. Vitals:03/22 AB/P 86/52, 90/52, 69/35, 67/32 HR 108/127/125 Treatment: Levophed gtt, titrate for B/P Wide open fluids during code In your professional opinion, can you please specify the type of shock if known ? Septic Shock o Suspected or known causative organism o Any associated organ failure Cardiogenic Shock o Cause Hypovolemic Shock o Cause Other, please specify Unable to determine Please document in your progress notes and discharge summary in order to capture severity of illness and risk of mortality. Include clinical findings that support your diagnosis. FYI: Press F11 to launch patient chart. Place X here if this finding has no clinical significance, is not applicable or if you are not able to provide any additional documentation. MTDD
--- NOTE | 2017-03-25 11:18 | CDI ---
In responding to this query, please exercise your independent professional judgment. The [facility] Coding Staff and Clinical Documentation Specialists appreciate your assistance in clarifying documentation, maintaining compliance with coding guidelines, accurately documenting patients condition and capturing severity of illness. The fact that a question is asked does not imply that any particular answer is desired or expected. Communication forms are a method of clarifying documentation and are not made part of the Legal Health Record. Thank you in advance for your clarification. Last Revision, September 2015 Radha Everett [address] [facility] [address] Documentation Clarification Form Mortality Review Date: 03/25/2017 11:05:00 AM From: Chrissy Ac RN, CCDS Admit Date: 03/20/2017 10:27:00 AM Patient Name: Raj Chávez Visit Number: [id number] Dr. Anuj Lamar A diagnosis of anemia lacks specificity to accurately reflect your patients severity of condition and clarification is needed. Patient history/risk factors: Gastroparesis, Neuroendocrine tumor of liver, gastroparesis Clinical Indicators: Coffee Ground emesis 03/22 CT AP: "1. Interval Inflammatory changes around the pancreas, worrisome for acute pancreatitis. Small free fluid and inflammatory changes of the upper abdomen and retroperitoneum. 2. Continued distended duodenum to the proximal third portion is now filled with increased hyperdense material. Possible intraluminal GI bleed, cannot exclude underlying neoplasm. Probable ileus, no definite sharp transition point to suggest obstruction. 3. Colonic diverticulosis. No acute diverticulitis. Cholecystectomy. Stable central hepatic lesion. Hemoglobin: 13.6/9.3/7.3 Hematocrit: 40/29.2/23.2 Treatment: Labs am daily CT AP with and without contrast In order to capture the severity of condition, please clarify the type of anemia and etiology if known: Acute blood loss anemia Acute on chronic blood loss anemia Chronic blood loss anemia Iron deficiency anemia Hemolytic anemia Drug induced anemia Anemia due to malignancy Nutritional anemia Anemia of chronic kidney disease Unable to determine Other, please specify Please document in your progress notes and discharge summary in order to capture severity of illness and risk of mortality. Include clinical findings that support your diagnosis. FYI: Press F11 to launch patient chart. Place X here if this finding has no clinical significance, is not applicable or if you are not able to provide any additional documentation. MTDD
--- NOTE | 2017-03-26 05:50 | DS ---
DATE OF ADMISSION: 03/20/2017 DATE OF DISCHARGE: 03/22/2017 Date patient is 03/22/2017. FINAL DIAGNOSES: 1. Acute severe pancreatitis, present on admission. 2. Chronic colonic diverticulosis. 3. Diabetes mellitus type 2 on oral hypoglycemics. 4. 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 5. Gastroparesis secondary to diabetes. 6. Benign prostatic hypertrophy. 7. Chronic gastroesophageal reflux disease. 8. Chronic abdominal pain from above. 9. Acute hypoxic respiratory failure, patient requiring ventilator. 10. Possible acute hypovolemic shock from fluid loss. CONSULTATIONS: 1. Dr. Ortega from oncology. 2. Dr. Demian Guardado from GI. 3. Dr. Landry from pulmonary. HOSPITAL COURSE: This is a patient with presented with acute pancreatitis, which has actually gotten worse and patient actually was in a code, dropped his blood pressure, had to be intubated. Family decided to make the patient comfortable. Patient eventually .
== END 2017-03-22 10:55 | disposition expired | DRG 438 ==
LOC: EC 08:17 → 5MS5E 10:27 → 5ONC 16:28 → 6ICU 03-22 01:42
PROVIDERS: ADMIT Hospitalist; ATTEND Hospitalist
PROC: 0BH17EZ Insertion of Endotracheal Airway into Trachea, Via Natural or Artificial Opening (ICD-10-PCS; principal; 2017-03-22)
PROC: 5A1935Z Respiratory Ventilation, Less than 24 Consecutive Hours (ICD-10-PCS; 2017-03-22)
PROC: 5A12012 Performance of Cardiac Output, Single, Manual (ICD-10-PCS; 2017-03-22)
PROC: 5A2204Z Restoration of Cardiac Rhythm, Single (ICD-10-PCS; 2017-03-22)
DX: K85.90 Acute pancreatitis without necrosis or infection, unspecified (principal); J96.01 Acute respiratory failure with hypoxia; R57.1 Hypovolemic shock; Z99.11 Dependence on respirator [ventilator] status; K92.0 Hematemesis; C7B.02 Secondary carcinoid tumors of liver; E34.0 Carcinoid syndrome; K31.84 Gastroparesis; E11.43 Type 2 diabetes mellitus with diabetic autonomic (poly)neuropathy; I46.9 Cardiac arrest, cause unspecified; Z51.5 Encounter for palliative care; Z66 Do not resuscitate; E78.5 Hyperlipidemia, unspecified; I10 Essential (primary) hypertension; K21.9 Gastro-esophageal reflux disease without esophagitis; K57.30 Diverticulosis of large intestine without perforation or abscess without bleeding; N40.1 Benign prostatic hyperplasia with lower urinary tract symptoms; B35.1 Tinea unguium; G89.29 Other chronic pain; R39.11 Hesitancy of micturition; R20.0 Anesthesia of skin; R63.4 Abnormal weight loss; I34.1 Nonrheumatic mitral (valve) prolapse; K52.9 Noninfective gastroenteritis and colitis, unspecified; K29.50 Unspecified chronic gastritis without bleeding; E78.00 Pure hypercholesterolemia, unspecified; D64.9 Anemia, unspecified; K64.9 Unspecified hemorrhoids; H91.90 Unspecified hearing loss, unspecified ear; H93.13 Tinnitus, bilateral; Z79.82 Long term (current) use of aspirin; Z79.84 Long term (current) use of oral hypoglycemic drugs; Z80.42 Family history of malignant neoplasm of prostate; Z87.11 Personal history of peptic ulcer disease; Z83.3 Family history of diabetes mellitus; Z80.1 Family history of malignant neoplasm of trachea, bronchus and lung; Z87.19 Personal history of other diseases of the digestive system; Z88.5 Allergy status to narcotic agent; Z91.048 Other nonmedicinal substance allergy status; Z79.891 Long term (current) use of opiate analgesic; Z79.899 Other long term (current) drug therapy; Z71.3 Dietary counseling and surveillance; Z92.21 Personal history of antineoplastic chemotherapy; Z90.49 Acquired absence of other specified parts of digestive tract; Z98.42 Cataract extraction status, left eye; Z98.41 Cataract extraction status, right eye; Z98.52 Vasectomy status; Z98.1 Arthrodesis status; Z82.49 Family history of ischemic heart disease and other diseases of the circulatory system; Z86.19 Personal history of other infectious and parasitic diseases; Z96.698 Presence of other orthopedic joint implants
CPT/HCPCS: 36415; 36600; 36620; 71270; 74020; 74177; 74178; 80053; 81001; 82150; 82271; 82565; 82805; 83605; 83690; 83735; 84100; 84520; 85025; 85610; 85730; 87086; 94002; 96361; 96374; 96375; 99285